=== PATIENT | male | born 1950 | race Caucasian/White ===

== ENCOUNTER 2018-04-30 09:57 | Inpatient (IN) | payer MEDICARE, SELFPAY ==
[2018-04-30] VITALS (10 sets, daily range): BP systolic 94–150; BP diastolic 54–105; PULSE 94–129; RESP 20–22; TEMP 37.3–39.6; O2SAT 90–95; BMI 35.9; BMI 37.0
--- NOTE | 2018-04-30 10:16 | XR_ITS ---
XR acute abdomen series HISTORY: ITS.REASON: SVETLANA , MARTIN ORDERING PHYSICIAN: Keturah Almonte MD PATIENT AGE: 68 years COMPARISON: None TECHNIQUE: Upright view of the chest is performed along with upright and supine views of the abdomen and pelvis. FINDINGS: Left hemidiaphragm is slightly elevated with patchy atelectasis or infiltrate in the left lung base. Normal heart size. Bone plate is present along the lower cervical spine. No evidence of intestinal obstruction or free air. Mild lumbar scoliosis convex right. Multiple pelvic phleboliths are present on the left. IMPRESSION: Left basilar atelectasis or infiltrate
--- NOTE | 2018-04-30 10:17 | HMH.EDFEV ---
ED Disposition Clinical Impression: Chronic inflammatory demyelinating neuropathy, Lingular pneumonia, Uncontrolled diabetes mellitus Disposition: Still a Patient Condition on Discharge: Fair Referrals: Crystal Cleaning [Primary Care Provider] - - Critical Care Critical Care Time: No Attestation: On , the high probability of a clinically significant, sudden or life threatening deterioration of the following system(s) required my full and direct attention, intervention and personal management. The time I documented below is in addition to time spent performing reported procedures but includes the following listed in this critical care notation. Medical Decision Making - Medical Records Medical records reviewed: Yes: I reviewed the patient's medical records. - Osman Inquiry Pt receiving controlled substance: No Osman was queried for this patient: No Vital Signs: 04/30/18 09:58 04/30/18 10:37 04/30/18 11:00 Temperature 103.2 F H 102.1 F H Temperature Source Oral Axillary Pulse Rate [Right Radial] 129 H 125 H 117 H Respiratory Rate 22 22 22 Blood Pressure [Right Arm] 133/90 150/89 H 150/105 H Blood Pressure Mean [Right Arm] 104 109 120 Blood Pressure Source [Right Arm] Automatic Cuff Automatic Cuff Blood Pressure Position [Right Arm] Sitting Sitting 02 Sat by Pulse Oximetry 94 L 92 L 90 L Oxygen Delivery Method Nasal Cannula Nasal Cannula Nasal Cannula Oxygen Flow Rate (LPM) 2 2 2 - Lab Data Lab Results 04/30/18 10:14: WBC 27.5 H*, RBC 4.72, Hgb 14.5, Hct 43.5, MCV 92.1, MCH 30.8, MCHC 33.4, RDW 13.8, Plt Count 223, MPV 7.9, Neut % (Auto) 93.4 H, Lymph % (Auto) 2.4 L, [place] % (Auto) 2.7, Eos % (Auto) 1.0, Baso % (Auto) 0.4, Neut # (Auto) 25.7 H, Lymph # (Auto) 0.7, [place] # (Auto) 0.7, Eos # (Auto) 0.3, Baso # (Auto) 0.1, Total Counted 100, Neutrophils % (Manual) 92 H, Band Neutrophils % 4.0, Lymphocytes % (Manual) 2 L, Atypical Lymphs % 1.0, Monocytes % (Manual) 1 L, Platelet Estimate Normal, Stomatocytes 3+ 04/30/18 10:14: Sodium 133 L, Potassium 3.5, Chloride 94 L, Carbon Dioxide 25, Anion Gap 17.5 H, BUN 15, Creatinine 1.63 H, Estimated Creat Clear 72, Estimated GFR 43 L, Est GFR ( Amer) 51 L, Glucose 206 H, Calcium 8.2 L, Total Bilirubin 0.8, AST 33, ALT 37, Alkaline Phosphatase 50, Total Protein 8.5 H, Albumin 3.5, Globulin 5.0 H, Albumin/Globulin Ratio 0.7 L 04/30/18 10:14: Magnesium 1.3 L, Total Creatine Kinase 565 H*, CK-MB (CK-2) 3.1, CK-MB (CK-2) Rel Index 0.5, Troponin I < 0.02, Lipase 104 04/30/18 10:14: Lactate 3.6 H 04/30/18 10:14: Influenza Type A Ag Negative, Influenza Type B Ag Negative 04/30/18 10:14: Group A Strep Rapid Negative 04/30/18 10:15: Specimen Source Right radial, O2 % 2l, ABG pH 7.47 H, ABG pCO2 33.4 L, ABG pO2 72.0 L, ABG HCO3 23.8, ABG Total CO2 24.8, ABG O2 Saturation 95, ABG Base Excess 0.2, Chucho Test Acceptable 04/30/18 11:20: Urine Color Dk yellow, Urine Appearance Sl cloudy, Urine pH 6.0, Ur Specific [place] >= 1.030, Urine Protein 2+, Urine Glucose (UA) Negative, Urine Ketones 1+, Urine Blood 2+, Urine Nitrate Negative, Urine Bilirubin Negative, Urine Urobilinogen 0.2, Ur Leukocyte Esterase Negative 04/30/18 11:20: Urine Opiates Screen Negative, Urine Methadone Screen Negative, Ur Barbituates Screen Negative, Ur Phencyclidine Scrn Negative, Ur Amphetamines Screen Negative, U Benzodiazepines Scrn Negative, Urine Cocaine Screen Negative, U Marijuana (THC) Screen Positive H Result diagrams: 04/30/18 10:14 04/30/18 10:14 Orders (Tests/Meds): ED MEDICATIONS Generic Name Dose Route Start Last Admin Trade Name Freq PRN Reason Stop Dose Admin Ceftriaxone Sodium 1 gm/ 50 mls @ 100 mls/hr 04/30/18 10:15 04/30/18 10:29 Sodium Chloride IV 05/14/18 10:14 100 mls/hr Q24H ANGELIKA Administration Protocol Levofloxacin/Dextrose 750 mg in 150 mls @ 100 mls/hr 04/30/18 11:45 04/30/18 11:35 Levofloxacin 750mg/150ml Premix IV 05/14/18 11:44 Not Gi
--- NOTE | 2018-04-30 10:21 | ED_ITS ---
ED Disposition Clinical Impression: Chronic inflammatory demyelinating neuropathy, Lingular pneumonia, Uncontrolled diabetes mellitus Disposition: Still a Patient Condition on Discharge: Fair Referrals: Crystal Cleaning [Primary Care Provider] - - Critical Care Critical Care Time: No Attestation: On , the high probability of a clinically significant, sudden or life threatening deterioration of the following system(s) required my full and direct attention, intervention and personal management. The time I documented below is in addition to time spent performing reported procedures but includes the fol lowing listed in this critical care notation. Medical Decision Making - Medical Records Medical records reviewed: Yes: I reviewed the patient's medical records. - Osman Inquiry Pt receiving controlled substance: No Osman was queried for this patient: No Vital Signs: 04/30/18 09:58 04/30/18 10:37 04/30/18 11:00 Temperature 103.2 F H 102.1 F H Temperature Source Oral Axillary Pulse Rate [Right Radial] 129 H 125 H 117 H Respiratory Rate 22 22 22 Blood Pressure [Right Arm] 133/90 150/89 H 150/105 H Blood Pressure Mean [Right Arm] 104 109 120 Blood Pressure Source [Right Arm] Automatic Cuff Automatic Cuff Blood Pressure Position [Right Arm] Sitting Sitting 02 Sat by Pulse Oximetry 94 L 92 L 90 L Oxygen Delivery Method Nasal Cannula Nasal Cannula Nasal Cannula Oxygen Flow Rate (LPM) 2 2 2 - Lab Data Lab Results 04/30/18 10:14: WBC 27.5 H*, RBC 4.72, Hgb 14.5, Hct 43.5, MCV 92.1, MCH 30.8, MCHC 33.4, RDW 13.8, Plt Count 223, MPV 7.9, Neut % (Auto) 93.4 H, Lymph % (Auto) 2.4 L, [place] % (Auto) 2.7, Eos % (Auto) 1.0, Baso % (Auto) 0.4, Neut # (Auto) 25.7 H, Lymph # (Auto) 0.7, [place] # (Auto) 0.7, Eos # (Auto) 0.3, Baso # (Auto) 0.1, Total Counted 100, Neutrophils % (Manual) 92 H, Band Neutrophils % 4.0, Lymphocytes % (Manual) 2 L, Atypical Lymphs % 1.0, Monocytes % (Manual) 1 L , Platelet Estimate Normal, Stomatocytes 3+ 04/30/18 10:14: Sodium 133 L, Potassium 3.5, Chloride 94 L, Carbon Dioxide 25, Anion Gap 17.5 H, BUN 15, Creatinine 1.63 H, Estimated Creat Clear 72, Estimated GFR 43 L, Est GFR ( Amer) 51 L, Glucose 206 H, Calcium 8.2 L, Total Bilirubin 0.8, AST 33, ALT 37, Alkaline Phosphatase 50, Total Protein 8.5 H, Albumin 3.5, Globulin 5.0 H, Albumin/Globulin Ratio 0.7 L 04/30/18 10:14: Magnesium 1.3 L, Total Creatine Kinase 565 H*, CK-MB (CK-2) 3.1, CK-MB (CK-2) Rel Index 0.5, Troponin I < 0.02, Lipase 104 04/30/18 10:14: Lactate 3.6 H 04/30/18 10:14: Influenza Type A Ag Negative, Influenza Type B Ag Negative 04/30/18 10:14: Group A Strep Rapid Negative 04/30/18 10:15: Specimen Source Right radial, O2 % 2l, ABG pH 7.47 H, ABG pCO2 33.4 L, ABG pO2 72.0 L, ABG HCO3 23.8, ABG Total CO2 24.8, ABG O2 Saturation 95, ABG Base Excess 0.2, Chucho Test Acceptable 04/30/18 11:20: Urine Color Dk yellow, Urine Appearance Sl cloudy, Urine pH 6.0, Ur Specific [place] >= 1.030, Urine Protein 2+, Urine Glucose (UA) Negative, Urine Ketones 1+, Urine Blood 2+, Urine Nitrate Negative, Urine Bilirubin Negative, Urine Urobilinogen 0.2, Ur Leukocyte Esterase Negative 04/30/18 11:20: Urine Opiates Screen Negative, Urine Methadone Screen Negative, Ur Barbituates Screen Negative, Ur Phencyclidine Scrn Negative, Ur Amphetamines Screen Negative, U Benzodiazepines Scrn Negative, Urine Cocaine Screen Negative, U Marijuana (THC) Screen Positive H Result diagrams:
[2018-04-30 10:40] LABS: Basophils # 0.1 K/mm3 (0-0.2); Basophils % 0.4 % (0.1-2.0); Eosinophils # 0.3 K/mm3 (0.0-0.4); Hematocrit 43.5 % (42.0-52.0); Hemoglobin 14.5 g/dL (14.1-18.0); Lymphocytes # 0.7 K/mm3 (0.7-4.5); Lymphocytes % 2.4 % (10-50); Mean Corpuscular HGB Conc 33.4 g/dL (31.8-35.4); Mean Corpuscular Hemoglobin 30.8 pg (27.0-31.2); Mean Corpuscular Volume 92.1 fl (80-94); Mean Platelet Volume 7.9 fl (7.4-10.4); Monocytes # 0.7 K/mm3 (0.1-1.0); Monocytes % 2.7 % (1.7-9.3); Neutrophils # 25.7 K/mm3 (1.8-7.8); Neutrophils % 93.4 % (37.0-80.0); Platelet Count 223 K/mm3 (142-424); Red Blood Count 4.72 M/mm3 (4.60-6.20); Red Cell Distribution Width 13.8 % (11.5-17.5); White Blood Count 27.5 K/mm3 (4.8-10.8)
[2018-04-30 10:41] LABS: Strep Scrn Group A (Rapid) Negative (Negative)
[2018-04-30 10:42] LABS: MANUAL DIFFERENTIAL MANUAL DIFFERENTIAL (MANUAL DIFF)
[2018-04-30 10:47] LABS: Lactic Acid 3.6 mmol/L (0.4-2.0)
[2018-04-30 10:51] LABS: Lipase 104 u/L (73-393); Magnesium 1.3 mg/dL (1.4-2.2); Sodium 133 mmol/L (136-145); Troponin I < 0.02 ng/ml (0.00-0.06)
[2018-04-30 10:52] LABS: Anion Gap 17.5 mEq/L (5-15); Bilirubin,Total 0.8 mg/dL (0.2-1.0); Blood Urea Nitrogen 15 mg/dL (7-18); Calcium 8.2 mg/dL (8.5-10.1); Carbon Dioxide 25 mmol/L (21.0-32.0); Chloride 94 mmol/L (98-107); Creatinine Clearance Estimated 72 mL/min (50-200); Creatinine,Serum 1.63 mg/dL (0.70-1.30); Estimated Glomerular Filt Rate 43 ml/min (>60); GFR (African American) 51 ML/MIN (>60); Glucose 206 mg/dL (74-106); Potassium 3.5 mmoL/L (3.5-5.1)
[2018-04-30 10:53] LABS: Alanine Aminotransferase 37 U/L (12-78); Albumin Level 3.5 gm/dL (3.4-5.0); Albumin/Globulin Ratio 0.7 (1.1-1.8); Alkaline Phosphatase 50 U/L (46-116); Aspartate Amino Transferase 33 U/L (15-37); Total Protein,Serum 8.5 gm/dL (6.4-8.2)
[2018-04-30 10:54] LABS: CKMB Relative Index 0.5 U/L (0-4.0); Creatine Kinase 565 U/L (39-308); Creatine Kinase MB 3.1 ng/ml (0.0-3.6)
[2018-04-30 10:59] LABS: Lymphocytes % 2 % (10-50); Monocytes % 1 % (2-9); Neutrophils % 92 % (42-76); Total Cells Counted 100
[2018-04-30 11:00] LABS: Platelet Estimate Normal; Stomatocytes 3+
[2018-04-30 11:01] LABS: ABG Base Excess 0.2 mmol/L (-2.4-2.3); ABG HCO3 23.8 mmhg (22.0-26.0); ABG Oxygen Saturation 95 % (90-100); ABG PCO2 33.4 mmhg (35.0-45.0); ABG PH 7.47 mmol/L (7.35-7.45); ABG TCO2 24.8 mmhg (23-27)
[2018-04-30 11:03] LABS: Allen's Test Acceptable; Oxygen 2L %; Source Right Radial
[2018-04-30 11:29] LABS: Microscopic, Urine URINE MICROSCOPIC (MICROSCOPIC)
[2018-04-30 11:32] LABS: Appearance,Urine SL CLOUDY (Clear); Blood, Urine 2+ (Negative); Color,Urine DK YELLOW (Yellow); Glucose,Urine (UA) Negative (Negative); Ketones,Urine 1+ (Negative); Leukocyte Esterase,Urine Negative (Negative); Nitrate,Urine Negative (Negative); Protein,Urine 2+ (Negative); Specific Gravity, Urine >= 1.030 (1.005-1.030); Urobilinogen,Urine 0.2 EU/dl (0.2)
[2018-04-30 11:36] LABS: Bilirubin,Urine Negative (Negative)
[2018-04-30 11:39] LABS: Amphetamine/Metha Screen,Urine Negative ng/mL (<1000); Barbiturates Screen,Urine Negative ng/mL (<200); Benzodiazepines Screen,Urine Negative ng/mL (<200); Cannabinoid Screen,Urine Positive ng/mL (<50); Cocaine Screen,Urine Negative ng/mL (<300); Methadone Screen,Urine Negative ng/mL (<300); Opiate Screen,Urine Negative ng/mL (<300); Phencyclidine Screen,Urine Negative ng/mL (<25)
--- NOTE | 2018-04-30 11:44 | PC.NURSE ---
Dr. Almonte speaking with Dr. Roy at this time.
[2018-04-30 11:47] LABS: Bacteria,Urine 1+ /lpf
--- NOTE | 2018-04-30 13:51 | HMH.HP ---
*Admission Date: 04/30/18 *Chief complaint: Fever/cough *History of present illness: 68-year-old white male with history of chronic autoimmune polyneuropathy, diagnosed about 3 years ago, who has been treated with Rituxan therapy by his neurologist, previously in [facility], after IVIG failed. He has recently moved to the [facility] to be closer to his daughter. He has been feeling fairly well except for chronic fatigue from his neuropathy issues until approximately a week ago when he began to have increasing cough and sputum production. 2 days ago he went to see a nurse practitioner in [place] who prescribed a Z-Max for bronchitis but he did not feel up to going to get the prescription and so yesterday began to feel worse and last night began to have high fevers. This morning he was confused, had a temperature elevation at home of 103 degrees, and then presented to the emergency department here. Found to have leukocytosis, tachycardia, fever and infiltrate on chest x-ray, admitted to hospital for treatment of pneumonia given his immunocompromise status and potential sepsis. [facility] History I have reviewed the patient's past medical history: Yes Medical History: Reports:: Diabetes Mellitus Type 2, Hypertension Denies:: Cancer, Diabetes Mellitus Type 1, MRSA *Have you ever received a pneumonia vaccine?: Yes *Have you received a flu vaccine this season?: No (Can't take it r/t auto-immune disorder) Comment:: Chronic autoimmune peripheral neuropathy-status post Rituxan therapy/IVIG therapy, follows with Dr. Machado, neurologist in [place]. Laterality Cases: Bilateral: Tonsillectomy Other Surgeries: Yes: Cardiac Catheterization Amputation: No Fractures: No - *Social History Smoking Status: Never smoker Alcohol Intake: former Alcohol Intake Frequency:: holidays/special occasions only Substance Use Type: denies use *Occupational Status:: retired Housing: house Household Members: spouse *Travel in the last 8 weeks: None - Psychiatric History Expresses thoughts of harming self/others: None Suicide Plan Description: No Plan Family Hx:: No significant family history, Non-contributory Review of Systems - Review of Systems Review of systems:: pertinent systems reviewed and negative unless documented below - Constitutional Reports anorexia, Reports body ache(s), Reports chills, Reports fatigue, Reports fever(s), Reports lack of energy - Eyes Denies blind spots, Denies blurry vision, Denies change in vision - ENT Denies abnormal hearing, Denies bleeding gums - *Cardiovascular Reports shortness of breath, Reports shortness of breath with activity, Denies chest pain, Denies chest pain at rest, Denies chest pain with activity, Denies leg pain with activity - *Respiratory Reports change in phlegm color, Reports chest congestion, Reports cough, Reports shortness of breath - *Gastrointestinal Denies abdominal pain, Denies belching, Denies bloating - *Genitourinary Denies difficulty urinating - *Musculoskeletal Reports muscle weakness, Reports numbness, Denies abnormal walking - Integumentary/Breasts Denies acne, Denies hair loss, Denies change in skin color - *Neurologic Reports abnormal walking, Reports burning sensations, Reports unsteadiness, Reports dizziness - Psychiatric Denies abnormal sleep pattern - Endocrine Denies cold intolerance, Denies excessive sweating - Hematologic/Lymphatic Denies easy bleeding, Denies easy bruising Meds Home Medications Medication Instructions Recorded Confirmed Type Aspirin 81 mg PO DAILY 04/30/18 04/30/18 History Butalb/Acetaminophen/Caffeine 1 tab PO DAILY PRN 04/30/18 04/30/18 History [Fiorcet Tablet] Cetirizine HCl [Zyrtec] 10 mg PO DAILY 04/30/18 04/30/18 History Cholecalciferol (Vitamin D3) 50,000 unit PO DAILY 04/30/18 04/30/18 History [Vitamin D3 50,000 unit Cap] Cholestyramine (with Sugar) 4 gm PO DAILY 04/30/18 04/30/18 History [Cholestyramine Pack
--- NOTE | 2018-04-30 13:56 | P.HP_ITS ---
*Admission Date: 04/30/18 *Chief complaint: Fever/cough *History of present illness: 68-year-old white male with history of chronic autoimmune polyneuropathy, diagnosed about 3 years ago, who has been treated with Rituxan therapy by his neurologist, previously in [facility], after IVIG failed. He has recently moved to the [facility] to be closer to his daughter. He has been feeling fairly well except for chronic fatigue from his neuropathy issues until approximately a week ago when he began to have increasing cough and sputum production. 2 days ago he went to see a nurse practitioner in [place] who prescribed a Z- Max for bronchitis but he did not feel up to going to get the prescription and so yesterday began to feel worse and last night began to have high fevers. This morning he was confused, had a temperature elevation at home of 103 degrees, and then presented to the emergency department here. Found to have leukocytosis, tachycardia, fever and infiltrate on chest x-ray, admitted to hospital for treatment of pneumonia given his immunocompromise status and potential sepsis. [facility] History I have reviewed the patient's past medical history: Yes Medical History: Reports:: Diabetes Mellitus Type 2, Hypertension Denies:: Cancer, Diabetes Mellitus Type 1, MRSA *Have you ever received a pneumonia vaccine?: Yes *Have you received a flu vaccine this season?: No (Can't take it r/t auto-immune disorder) Comment:: Chronic autoimmune peripheral neuropathy-status post Rituxan therapy/IVIG therapy, follows with Dr. Machado, neurologist in [place]. Laterality Cases: Bilateral: Tonsillectomy Other Surgeries: Yes: Cardiac Catheterization Amputation: No Fractures: No - *Social History Smoking Status: Never smoker Alcohol Intake: former Alcohol Intake Frequency:: holidays/special occasions only Substance Use Type: denies use *Occupational Status:: retired Housing: house Household Members: spouse *Travel in the last 8 weeks: None - Psychiatric History Expresses thoughts of harming self/others: None Suicide Plan Description: No Plan Family Hx:: No significant family history, Non-contributory Review of Systems - Review of Systems Review of systems:: pertinent systems reviewed and negative unless documented below - Constitutional Reports anorexia, Reports body ache(s), Reports chills, Reports fatigue, Reports fever(s), Reports lack of energy - Eyes Denies blind spots, Denies blurry vision, Denies change in vision - ENT Denies abnormal hearing, Denies bleeding gums - *Cardiovascular Reports shortness of breath, Reports shortness of breath with activity, Denies chest pain, Denies chest pain at rest, Denies chest pain with activity, Denies leg pain with activity - *Respiratory Reports change in phlegm color, Reports chest congestion, Reports cough, Reports shortness of breath - *Gastrointestinal Denies abdominal pain, Denies belching, Denies bloating - *Genitourinary Denies difficulty urinating - *Musculoskeletal Reports muscle weakness, Reports numbness, Denies abnormal walking - Integumentary/Breasts Denies acne, Denies hair loss, Denies change in skin color - *Neurologic Reports abnormal walking, Reports burning sensations, Reports unsteadiness, Reports dizziness - Psychiatric Denies abnormal sleep pattern - Endocrine Denies cold intolerance, Denies excessive sweating - Hematologic/Lymphatic Denies easy bleeding, Denies easy bruising Meds Home Medications
[2018-04-30 14:24] LABS: Reflex Lactic Add Lactic Reflex
[2018-04-30 14:59] LABS: Lactic Acid Follow Up (RFLX 1) 3.5 (0.4-2.0)
--- NOTE | 2018-04-30 15:12 | HMH.PHAVTE ---
[facility] Pharmacy VTE Monitoring - Patient Demographics Admission date: 04/30/18 Report Date: 04/30/18 Time: 15:12 Allergies/Adverse Reactions: Patient Allergies Iodinated Contrast Media - Oral and Adverse Reaction (Verified 04/30/18 10:09) Height: 1.78 m Weight: 117.084 kg Patient Problems: Current Active Problems Chronic inflammatory demyelinating neuropathy (Acute) Lingular pneumonia (Acute) Uncontrolled diabetes mellitus (Acute) Sepsis (Acute) Diabetes mellitus type 2 in obese (Acute) Obesity (BMI 35.0-39.9 without comorbidity) (Acute) Immunosuppressed status (Acute) - VTE Risk Labs: VTE Related Lab Results Hgb 14.5 g/dL (14.1-18.0) 04/30/18 10:14 Hct 43.5 % (42.0-52.0) 04/30/18 10:14 Plt Count 223 K/mm3 (142-424) 04/30/18 10:14 BUN 15 mg/dL (7-18) 04/30/18 10:14 Creatinine 1.63 mg/dL (0.70-1.30) H 04/30/18 10:14 Estimated Creat Clear 72 mL/min (50-200) 04/30/18 10:14 Was VTE Risk Assessment Performed: Yes VTE Score: 4 VTE Risk Level: Low Risk Clinical Trial Participant: No - Prophylaxis VTE Prophylaxis Ordered?: Yes Types of VTE Prophylaxis: TEDS Knee High
--- NOTE | 2018-04-30 15:13 | HMH.PHAINT ---
HOME MED REC: Called [facility] pharmacy and spent time with patient and family reconciling home medication list in [facility]. Zanaflex, Tramadol, Cholecalciferol, Metformin, Glimepiride were all edited. List is correct as of 1515 on 04/30/18.
[2018-04-30 16:40] LABS: Reflex Lactic (2 hrs) Add Lactic Reflex
[2018-04-30 17:00] LABS: POC Glucose,Bedside 159 (70-110)
[2018-04-30 17:21] LABS: Lactic Acid Follow up (RFLX 2) 2.2 (0.4-2.0)
--- NOTE | 2018-04-30 17:36 | HMH.SEPSISRE ---
Tissue Perfusion Evaluation Sepsis Re-Evaluation Performed: Yes Date Performed: 04/30/18 Time Performed: 17:37 Sepsis Follow-Up: Yes: Respiratory exam, Cardiovascular exam, Capillary refill, Peripheral pulse strength, Peripheral pulse location, Skin exam, Vital Signs Most Recent Vital Signs: Temperature 99.3 F 04/30/18 16:00 Temperature Source Oral 04/30/18 16:00 Pulse Rate 105 H 04/30/18 16:14 Respiratory Rate 22 04/30/18 16:00 Blood Pressure 131/70 04/30/18 16:00 Blood Pressure Mean 90 04/30/18 16:00 Blood Pressure Source Automatic Cuff 04/30/18 16:00 Blood Pressure Position Supine 04/30/18 16:00 02 Sat by Pulse Oximetry 90 L 04/30/18 16:00 Oxygen Delivery Method 04/30/18 16:14 Oxygen Flow Rate (LPM) 2 04/30/18 12:28
[2018-04-30 17:45] LABS: Adenovirus,PCR Not Detected (NotDetected); Bordetella Pertussis Not Detected (NotDetected); Chlamydophila Pneumoniae, PCR Not Detected (NotDetected); Coronavirus 229E Not Detected (NotDetected); Coronavirus NL63 Not Detected (NotDetected); Coronavirus OC43 Not Detected (NotDetected); Coronovirus HKU1,PCR Not Detected (NotDetected); Human Metapneumovirus Not Detected (NotDetected); Influenza A, PCR Not Detected (NotDetected); Influenza AH1, 2009 Not Detected (NotDetected); Influenza AH1, PCR Not Detected (NotDetected); Influenza AH3,PCR Not Detected (NotDetected); Influenza B, PCR Not Detected (NotDetected); Mycoplasma Pneumoniae, PCR Not Detected (NotDetected); Parainfluenza 1, PCR Not Detected (NotDetected); Parainfluenza 2, PCR Not Detected (NotDetected); Parainfluenza 3, PCR Not Detected (NotDetected); Parainfluenza 4, PCR Not Detected (NotDetected); Respiratory Syncytial Virus Not Detected (NotDetected); Rhinovirus/Enterovirus Not Detected (NotDetected)
--- NOTE | 2018-04-30 18:23 | PC.NURSE ---
Patient arrived to floor, oriented to room at 1245 this afternoon. NS bolus was started at 1405 for sepsis protocol, per Dr. Roy. Infusion of 3510ml of NS was completed at 1752 this afternoon, patient tolerated well, BP within normal limits. Dr. Roy at bedside at 1815 this afternoon and stated that he would chart sepsis assessment. Patient is sitting up on side of bed at this time, call light within reach, family at bedside, will continue to monitor.
[2018-04-30 20:50] LABS: POC Glucose,Bedside 154 (70-110)
--- NOTE | 2018-04-30 22:09 | PC.NURSE ---
2100 courtesy check; pt sleeping
[2018-05-01] VITALS (10 sets, daily range): BP systolic 87–138; BP diastolic 44–72; PULSE 56–94; RESP 18–22; TEMP 36.4–37.6; O2SAT 93–97
--- NOTE | 2018-05-01 05:13 | PC.NURSE ---
PATIENT SEEMS TO HAVE SLEPT WELL THIS SHIFT. HE AMBULATES TO BATHROOM WITH CANE AND STAFF ASSIST X1. HE HAS HAD A COUPLE OF LOWER BLOOD PRESSURES DURING THE NIGHT, BUT DENIES ANY DIZZINESS AND HAS BEEN ASYMPTOMATIC. HE DOES STATE THAT HE FEELS WEAK WHEN AMBULATING. NO OTHER ACUTE CHANGES HAVE BEEN NOTED SINCE PREVIOUS ASSESSMENT. PATIENT IS CURRENTLY IN BED SLEEPING. NO OTHER PROBLEMS NOTED AT THIS TIME. VSS. WILL CONTINUE TO MONITOR.
[2018-05-01 05:31] LABS: POC Glucose,Bedside 119 (70-110)
--- NOTE | 2018-05-01 06:35 | PC.NURSE ---
0600 courtesy check; no needs voiced
[2018-05-01 06:57] LABS: Basophils % 0.2 % (0.1-2.0); Eosinophils # 0.4 K/mm3 (0.0-0.4); Eosinophils % 2.3 % (0.1-12.0); Hematocrit 35.9 % (42.0-52.0); Lymphocytes # 1.1 K/mm3 (0.7-4.5); Lymphocytes % 6.8 % (10-50); Mean Corpuscular HGB Conc 32.4 g/dL (31.8-35.4); Mean Corpuscular Volume 92.8 fl (80-94); Mean Platelet Volume 7.3 fl (7.4-10.4); Monocytes # 0.6 K/mm3 (0.1-1.0); Monocytes % 3.7 % (1.7-9.3); Neutrophils # 14.3 K/mm3 (1.8-7.8); Platelet Count 168 K/mm3 (142-424); Red Blood Count 3.87 M/mm3 (4.60-6.20); White Blood Count 16.5 K/mm3 (4.8-10.8)
[2018-05-01 07:08] LABS: Blood Urea Nitrogen 17 mg/dL (7-18); Carbon Dioxide 25 mmol/L (21.0-32.0); Chloride 100 mmol/L (98-107); Creatinine Clearance Estimated 83 mL/min (50-200); Creatinine,Serum 1.45 mg/dL (0.70-1.30); Estimated Glomerular Filt Rate 49 ml/min (>60); GFR (African American) 59 ML/MIN (>60); Glucose 113 mg/dL (74-106); Magnesium 1.5 mg/dL (1.4-2.2); Sodium 135 mmol/L (136-145)
[2018-05-01 07:12] LABS: MANUAL DIFFERENTIAL MANUAL DIFFERENTIAL (MANUAL DIFF)
--- NOTE | 2018-05-01 07:27 | PC.NURSE ---
REPORT GIVEN TO Evan MEYERS RN
[2018-05-01 07:32] LABS: Hemoglobin 11.7 g/dL (14.1-18.0)
--- NOTE | 2018-05-01 08:42 | HMH.ACPN2 ---
Internal Medicine - PN: Subj *Date: 05/01/18 *Time: 07:30 Interval history: Patient sitting on side of the bed, states I still don't feel good. Was able to produce a sputum culture which shows growth, final report and sensitivities pending. Reports neuropathic pain has worsened without gabapentin. Alert and oriented x3. Rate and rhythm regular. Lung sounds with coarse crackles bilateral bases. Abdomen soft but protuberant. No LE edema Exam Vital signs and Labs for Last 24 Hours: Temp Pulse Resp BP Pulse Ox 98.6 F 86 18 116/62 95 05/01/18 07:19 05/01/18 07:19 05/01/18 07:19 05/01/18 07:19 05/01/18 07:19 Laboratory Results - last 24 hr 04/30/18 10:14: WBC 27.5 H*, RBC 4.72, Hgb 14.5, Hct 43.5, MCV 92.1, MCH 30.8, MCHC 33.4, RDW 13.8, Plt Count 223, MPV 7.9, Neut % (Auto) 93.4 H, Lymph % (Auto) 2.4 L, [place] % (Auto) 2.7, Eos % (Auto) 1.0, Baso % (Auto) 0.4, Neut # (Auto) 25.7 H, Lymph # (Auto) 0.7, [place] # (Auto) 0.7, Eos # (Auto) 0.3, Baso # (Auto) 0.1, Total Counted 100, Neutrophils % (Manual) 92 H, Band Neutrophils % 4.0, Lymphocytes % (Manual) 2 L, Atypical Lymphs % 1.0, Monocytes % (Manual) 1 L, Platelet Estimate Normal, Stomatocytes 3+ 04/30/18 10:14: Sodium 133 L, Potassium 3.5, Chloride 94 L, Carbon Dioxide 25, Anion Gap 17.5 H, BUN 15, Creatinine 1.63 H, Estimated Creat Clear 72, Estimated GFR 43 L, Est GFR ( Amer) 51 L, Glucose 206 H, Calcium 8.2 L, Total Bilirubin 0.8, AST 33, ALT 37, Alkaline Phosphatase 50, Total Protein 8.5 H, Albumin 3.5, Globulin 5.0 H, Albumin/Globulin Ratio 0.7 L 04/30/18 10:14: Magnesium 1.3 L, Total Creatine Kinase 565 H*, CK-MB (CK-2) 3.1, CK-MB (CK-2) Rel Index 0.5, Troponin I < 0.02, Lipase 104 04/30/18 10:14: Lactate 3.6 H 04/30/18 10:14: Influenza Type A Ag Negative, Influenza Type B Ag Negative 04/30/18 10:14: Group A Strep Rapid Negative 04/30/18 10:15: Specimen Source Right radial, O2 % 2l, ABG pH 7.47 H, ABG pCO2 33.4 L, ABG pO2 72.0 L, ABG HCO3 23.8, ABG Total CO2 24.8, ABG O2 Saturation 95, ABG Base Excess 0.2, Chucho Test Acceptable 04/30/18 11:20: Urine Color Dk yellow, Urine Appearance Sl cloudy, Urine pH 6.0, Ur Specific [place] >= 1.030, Urine Protein 2+, Urine Glucose (UA) Negative, Urine Ketones 1+, Urine Blood 2+, Urine Nitrate Negative, Urine Bilirubin Negative, Urine Urobilinogen 0.2, Ur Leukocyte Esterase Negative, Urine RBC None, Urine WBC 3-5, Ur Squamous Epith Cells 5-10, Urine Bacteria 1+ 04/30/18 11:20: Urine Opiates Screen Negative, Urine Methadone Screen Negative, Ur Barbituates Screen Negative, Ur Phencyclidine Scrn Negative, Ur Amphetamines Screen Negative, U Benzodiazepines Scrn Negative, Urine Cocaine Screen Negative, U Marijuana (THC) Screen Positive H 04/30/18 14:33: Lactate 3.5 H 04/30/18 16:52: POC Glucose 159 H 04/30/18 16:53: Lactate 2.2 H 04/30/18 17:26: Chlamy pneumoniae PCR Not detected, Adenovirus (PCR) Not detected, B. pertussis DNA (PCR) Not detected, Coronavirus OC43 (PCR) Not detected, Coronavirus HKU1 (PCR) Not detected, Coronavirus 229E (PCR) Not detected, Coronavirus NL63 (PCR) Not detected, Human Metapneumovir PCR Not detected, Influenza A (H1) PCR Not detected, Influ A (H1N1/09) PCR Not detected, Influenza A (H3) PCR Not detected, Influenza Type A (PCR) Not detected, Influenza Type B (PCR) Not detected, M. pneumoniae (PCR) Not detected, Parainfluenza 1 (PCR) Not detected, Parainfluenza 2 (PCR) Not detected, Parainfluenza 3 (PCR) Not detected, Parainfluenza 4 (PCR) Not detected, RSV (PCR) Not detected, Entero/Rhino (PCR) Not detected 04/30/18 20:32: POC Glucose 154 H 05/01/18 05:21: POC Glucose 119 H 05/01/18 06:08: WBC 16.5 H D, RBC 3.87 L, Hgb 11.7 L D, Hct 35.9 L, MCV 92.8, MCH 30.0, MCHC 32.4, RDW 14.0, Plt Count 168, MPV 7.3 L, Neut % (Auto) 87.0 H, Lymph % (Auto) 6.8 L, [place] % (Auto) 3.7, Eos % (Auto) 2.3, Baso % (Auto) 0.2, Neut # (Auto) 14.3 H, Lymph # (Auto) 1.1, [place] # (Auto) 0.6, Eos # (Auto) 0.4, Baso # (Auto) 0.0 05/01/18 06:08: Sodium 135 L
--- NOTE | 2018-05-01 08:47 | P.PN_ITS ---
Internal Medicine - PN: Subj *Date: 05/01/18 *Time: 07:30 Interval history: Patient sitting on side of the bed, states I still don't feel good. Was able to produce a sputum culture which shows growth, final report and sensitivities pending. Reports neuropathic pain has worsened without gabapentin. Alert and oriented x3. Rate and rhythm regular. Lung sounds with coarse crackles bilateral bases. Abdomen soft but protuberant. No LE edema Exam Vital signs and Labs for Last 24 Hours: Temp Pulse Resp BP Pulse Ox 98.6 F 86 18 116/62 95 05/01/18 07:19 05/01/18 07:19 05/01/18 07:19 05/01/18 07:19 05/01/18 07:19 Laboratory Results - last 24 hr 04/30/18 10:14: WBC 27.5 H*, RBC 4.72, Hgb 14.5, Hct 43.5, MCV 92.1, MCH 30.8, MCHC 33.4, RDW 13.8, Plt Count 223, MPV 7.9, Neut % (Auto) 93.4 H, Lymph % (Auto) 2.4 L, [place] % (Auto) 2.7, Eos % (Auto) 1.0, Baso % (Auto) 0.4, Neut # (Auto) 25.7 H, Lymph # (Auto) 0.7, [place] # (Auto) 0.7, Eos # (Auto) 0.3, Baso # (Auto) 0.1, Total Counted 100, Neutrophils % (Manual) 92 H, Band Neutrophils % 4.0, Lymphocytes % (Manual) 2 L, Atypical Lymphs % 1.0, Monocytes % (Manual) 1 L , Platelet Estimate Normal, Stomatocytes 3+ 04/30/18 10:14: Sodium 133 L, Potassium 3.5, Chloride 94 L, Carbon Dioxide 25, Anion Gap 17.5 H, BUN 15, Creatinine 1.63 H, Estimated Creat Clear 72, Estimated GFR 43 L, Est GFR ( Amer) 51 L, Glucose 206 H, Calcium 8.2 L, Total Bilirubin 0.8, AST 33, ALT 37, Alkaline Phosphatase 50, Total Protein 8.5 H, Albumin 3.5, Globulin 5.0 H, Albumin/Globulin Ratio 0.7 L 04/30/18 10:14: Magnesium 1.3 L, Total Creatine Kinase 565 H*, CK-MB (CK-2) 3.1, CK-MB (CK-2) Rel Index 0.5, Troponin I < 0.02, Lipase 104 04/30/18 10:14: Lactate 3.6 H 04/30/18 10:14: Influenza Type A Ag Negative, Influenza Type B Ag Negative 04/30/18 10:14: Group A Strep Rapid Negative 04/30/18 10:15: Specimen Source Right radial, O2 % 2l, ABG pH 7.47 H, ABG pCO2 33.4 L, ABG pO2 72.0 L, ABG HCO3 23.8, ABG Total CO2 24.8, ABG O2 Saturation 95, ABG Base Excess 0.2, Chucho Test Acceptable 04/30/18 11:20: Urine Color Dk yellow, Urine Appearance Sl cloudy, Urine pH 6.0, Ur Specific Alex >= 1.030, Urine Protein 2+, Urine Glucose (UA) Negative, Urine Ketones 1+, Urine Blood 2+, Urine Nitrate Negative, Urine Bilirubin Negative, Urine Urobilinogen 0.2, Ur Leukocyte Esterase Negative, Urine RBC None, Urine WBC 3-5, Ur Squamous Epith Cells 5-10, Urine Bacteria 1+ 04/30/18 11:20: Urine Opiates Screen Negative, Urine Methadone Screen Negative, Ur Barbituates Screen Negative, Ur Phencyclidine Scrn Negative, Ur Amphetamines Screen Negative, U Benzodiazepines Scrn Negative, Urine Cocaine Screen Negative, U Marijuana (THC) Screen Positive H 04/30/18 14:33: Lactate 3.5 H 04/30/18 16:52: POC Glucose 159 H 04/30/18 16:53: Lactate 2.2 H 04/30/18 17:26: Chlamy pneumoniae PCR Not detected, Adenovirus (PCR) Not detected, B. pertussis DNA (PCR) Not detected, Coronavirus OC43 (PCR) Not detect ed, Coronavirus HKU1 (PCR) Not detected, Coronavirus 229E (PCR) Not detected, Coronavirus NL63 (PCR) Not detected, Human Metapneumovir PCR Not detected, Influenza A (H1) PCR Not detected, Influ A (H1N1/09) PCR Not detected, Influenza A (H3) PCR Not detected, Influenza Type A (PCR) Not detected, Influenza Type B (PCR) Not detected, M. pneumoniae (PCR) Not detected, Parainfluenza 1 (PCR) Not detected, Parainfluenza 2 (PCR) Not detected, Parainfluenza 3 (PCR) Not detected, Parainfluenza 4 (PCR) Not detected, RSV (PCR) Not detected, Entero/Rhino (PCR) Not detected 04/30/18 20:32: POC Glucose 154 H 05/01/18 05:21: POC Glucose 119 H 05/01/18 06:08
[2018-05-01 09:03] LABS: Eosinophils % 2 % (0-3); Lymphocytes % 9 % (10-50); Monocytes % 3 % (2-9); Neutrophils % 86 % (42-76); Platelet Estimate Normal; RBC Morphology Normal; Total Cells Counted 100
[2018-05-01 12:24] LABS: POC Glucose,Bedside 173 (70-110)
[2018-05-01 17:16] LABS: POC Glucose,Bedside 150 (70-110)
--- NOTE | 2018-05-01 20:08 | PC.NURSE ---
PATIENT BP LOW THRU THE DAY, RN PHONED DR. EDDY OFFICE, LEFT A MESSAGE, NO RETURN. THANG ON FLOOR AND RN GAVE REPORT ABOUT PATIENTS CONDITION, THANG ORDERED A 500 BOLUS OF LR. RN GAVE BOLUS, PATIENT STATED HE FELT BETTER NO MORE LIGHTHEADNESS BUT WAS STILL TIRED. RN EDUCATED PATIENT THAT HE HAS BEEN EXTREMELY ILL AND HIS BODY IS TIRED. RN ENCOURAGED PATIENT TO REST. PATIENT STATED HE RESTED A COUPLE OF TIMES IN THE CHAIR. PATIENT STATED THAT DAUGHTER BROUGHT IN HIS THC OIL, THE DR. ARIAS TALKED TO HIM ABOUT BEING POSITIVE FOR MARIJUANA. NIGHT RN IN ROOM AND AWARE OF OIL. NO OTHER CONCERNS OR NEEDS AT THIS TIME.
[2018-05-02] VITALS (8 sets, daily range): BP systolic 108–142; BP diastolic 64–89; PULSE 67–90; RESP 20–24; TEMP 36.6–37.2; O2SAT 94–97; BMI 36.9
[2018-05-02 00:50] LABS: POC Glucose,Bedside 215 (70-110)
--- NOTE | 2018-05-02 03:21 | PC.NURSE ---
Pt. rested well this shift. Is alert and oriented X3. VS have remained stable. Lung sounds were diminished and bowel sounds are active. Pt. has complained of a headache that was treated by medication given from [facility]. Will continue to monitor.
[2018-05-02 07:14] LABS: POC Glucose,Bedside 192 (70-110)
--- NOTE | 2018-05-02 08:00 | XR_ITS ---
XR chest 2V HISTORY: ITS.REASON: pneumonia ORDERING PHYSICIAN: Dimas Roy MD PATIENT AGE: 68 years COMPARISON: 04/30/2018 FINDINGS: Unremarkable cardiovascular structures. There are low lung volumes. Patchy density reversely noted in the left lower lobe has shown improvement consistent with improvement in atelectasis or infiltrate. Bone plate is once again noted over the lower cervical spine. No acute bony anomalies. IMPRESSION: Improvement in left basilar airspace disease
--- NOTE | 2018-05-02 08:03 | HMH.ACPN2 ---
Internal Medicine - PN: Subj *Date: 05/02/18 *Time: 08:03 Interval history: Patient has done well overnight. Not requiring any supplemental oxygen. Cough is become more productive though he is feeling better. Remaining hemodynamically stable, no chest pain, shortness of breath, nausea or vomiting. Fever has defervesced and has been afebrile for more than 24 hours. Tolerating regular diet. Exam Vital signs and Labs for Last 24 Hours: Temp Pulse Resp BP Pulse Ox 99.0 F 90 23 132/87 95 05/02/18 07:52 05/02/18 07:52 05/02/18 07:52 05/02/18 07:52 05/02/18 07:52 Laboratory Results - last 24 hr 05/01/18 06:08: Total Counted 100, Neutrophils % (Manual) 86 H, Lymphocytes % (Manual) 9 L, Monocytes % (Manual) 3, Eosinophils % (Manual) 2, Platelet Estimate Normal, RBC Morphology Normal 05/01/18 12:14: POC Glucose 173 H 05/01/18 16:48: POC Glucose 150 H 05/01/18 20:46: POC Glucose 215 H 05/02/18 06:44: POC Glucose 192 H I & O for Last 24 hours: Intake & Output 04/29/18 04/30/18 05/01/18 05/02/18 23:59 23:59 23:59 23:59 Intake Total 4477 / 4477 1870 / 1870 480 / 480 Output Total 1999 Balance 4477 / 4477 1870 / 1870 -1520 / -1520 Weight 117.084 kg Microbiology Reports for the Last 24 Hours: Microbiology 04/30/18 10:14 Throat Group A Streptococcus Screen (ELIZABETH) - Final Negative for Group A Streptococcus. 04/30/18 20:25 Sputum - Expectorated Sputum Gram Stain - Final 04/30/18 20:25 Sputum - Expectorated Sputum Sputum Culture - Preliminary Narrative: Alert and oriented x3 Rate and rhythm regular Lung sounds with coarse crackles left base Abdomen soft but protuberant. No LE edema Assessment and Plan (1) Sepsis Current visit: Yes Status: Acute Category: Medical Code(s): A41.9 - Sepsis, unspecified organism (2) Diabetes mellitus type 2 in obese Current visit: Yes Status: Acute Category: Medical Code(s): E11.69 - Type 2 diabetes mellitus with other specified complication; E66.9 - Obesity, unspecified (3) Obesity (BMI 35.0-39.9 without comorbidity) Current visit: Yes Status: Acute Category: Medical Code(s): E66.9 - Obesity, unspecified (4) Lingular pneumonia Current visit: Yes Status: Acute Category: Medical Code(s): J18.9 - Pneumonia, unspecified organism (5) Immunosuppressed status Current visit: Yes Status: Acute Category: Medical Code(s): D89.9 - Disorder involving the immune mechanism, unspecified (6) Chronic inflammatory demyelinating neuropathy Current visit: Yes Status: Acute Category: Medical Code(s): G61.81 - Chronic inflammatory demyelinating polyneuritis - Assessment and plan all Dx Assessment and Plan for all problems:: Patient improving. No longer requiring supplemental oxygen. Fever has defervesced. Continue current antibiotics as we are still awaiting culture and sensitivities. Will complete azithromycin with today's dose. Likely transition to Omnicef for remainder of oral antibiotics pending sensitivities. Otherwise continuing patient's prednisone, holding azathioprine. Remains hemodynamically stable. Continues to require inpatient management.
--- NOTE | 2018-05-02 10:11 | PC.NURSE ---
sitting up in bed awake. no needs at this time.
[2018-05-02 12:39] LABS: POC Glucose,Bedside 204 (70-110)
[2018-05-02 20:22] LABS: POC Glucose,Bedside 219 (70-110)
[2018-05-02 20:22] LABS: POC Glucose,Bedside 303 (70-110)
[2018-05-03] VITALS: BP 140/95; PULSE 70; RESP 20; TEMP 36.4; O2SAT 95
[2018-05-03 04:00] VITALS: BP 139/80; PULSE 76; RESP 20; TEMP 36.6; O2SAT 94
--- NOTE | 2018-05-03 04:37 | PC.NURSE ---
PATIENT HAS SLEPT ON AND OFF THIS SHIFT. HE SLEPT UNTIL MIDNIGHT VITALS WERE TAKEN, BUT HAS HAD A DIFFICULT TIME GOING BACK TO SLEEP. HE REMAINS ON ROOM AIR WITH OXYGEN SAT WNL AND NO C/O SOA. HE DOES STATE THAT HE HAS CHRONIC LOW BACK PAIN AND REQUIRED PRN TRAMADOL AT BEDTIME. HE DOES HAVE SCATTERED SMALL, RED BUMPS ON ABD WHICH PATIENT STATED APPEARED YESTERDAY, WELL A GROUP OF SMALL BLISTERS TO RIGHT KNEE. NO ACUTE CHANGES HAVE BEEN NOTED SINCE PREVIOUS ASSESSMENT. PATIENT IS CURRENTLY IN BED WATCHING TV. NO OTHER PROBLEMS NOTED AT THIS TIME. VSS. WILL CONTINUE TO MONITOR.
[2018-05-03 06:14] LABS: POC Glucose,Bedside 165 (70-110)
--- NOTE | 2018-05-03 07:15 | PC.NURSE ---
REPORT GIVEN TO Meredith HAND W/C
--- NOTE | 2018-05-03 07:26 | PC.NURSE ---
REPORT GIVEN TO Melquiades THOMPSON RN
[2018-05-03 07:51] VITALS: BP 149/86; PULSE 81; RESP 22; TEMP 36.9; O2SAT 97
[2018-05-03 08:00] VITALS: O2SAT 97
--- NOTE | 2018-05-03 08:54 | HMH.DCSUM ---
General - General Admission date:: 04/30/18 Discharge date: 05/03/18 HPI HPI: 68-year-old white male with history of chronic autoimmune polyneuropathy, diagnosed about 3 years ago, who has been treated with Rituxan therapy by his neurologist, previously in [facility], after IVIG failed. He has recently moved to the [facility] to be closer to his daughter. He has been feeling fairly well except for chronic fatigue from his neuropathy issues until approximately a week ago when he began to have increasing cough and sputum production. 2 days ago he went to see a nurse practitioner in [place] who prescribed a Z-Max for bronchitis but he did not feel up to going to get the prescription and so yesterday began to feel worse and last night began to have high fevers. This morning he was confused, had a temperature elevation at home of 103 degrees, and then presented to the emergency department here. Found to have leukocytosis, tachycardia, fever and infiltrate on chest x-ray, admitted to hospital for treatment of pneumonia given his immunocompromise status and potential sepsis. Hospital Course Hospital Course: Admitted for sepsis due to pneumonia. Brisk response to IV Ceftriaxone and Azith. Sputum culture obtained. Weaned off O2 during admission. Remained hemodynamically stable with no further respiratory distress. Tolerated Regular diet. Fever defervesced. Monitored sputum culture, though no result prior to DC> Due to clinical improvement, met criteria to be discharged home. Finished Azithromycin course during admission. Transitioned to PO Cefdinir for completion of 14d course of therapy. Will follow Sputum Culture, if sensitivities differ form DC Abx, will change treatment in outpatient setting. plan for follow-up in the next week with PCP. no fevers, SOA, CP, LACEY, N/V/D. Objective Vital signs: Temp Pulse Resp BP Pulse Ox 98.5 F 81 22 149/86 H 97 05/03/18 07:51 05/03/18 07:51 05/03/18 07:51 05/03/18 07:51 05/03/18 07:51 Narrative: Alert and oriented x3 Rate and rhythm regular Lung sounds with intervally improved crackles left base Abdomen soft but protuberant. No LE edema. Results Labs on day of discharge: Labs from last 24 hours 05/03/18 05/02/18 05/02/18 05:53 20:08 17:15 POC Glucose 165 H 219 H 303 H* 05/02/18 11:42 POC Glucose 204 H Preliminary micro results at discharge 04/30/18 20:25 Sputum Culture - Preliminary Sputum - Expectorated Sputum 04/30/18 10:14 Blood Culture - Preliminary Blood NO GROWTH AFTER 48 HOURS 04/30/18 10:14 Blood Culture - Preliminary Blood NO GROWTH AFTER 48 HOURS DS: Diagnosis - Discharge Diagnosis (1) Sepsis Status: Resolved (2) Diabetes mellitus type 2 in obese Status: Chronic (3) Obesity (BMI 35.0-39.9 without comorbidity) Status: Chronic (4) Lingular pneumonia Status: Acute (5) Immunosuppressed status Status: Chronic (6) Chronic inflammatory demyelinating neuropathy Status: Chronic Discharge Plan - Patient Discharge Instructions ACTIVITY: Continue current activity Additional Instructions: FOLLOW UP WITH MD. MONITOR FOR WORSENING OF SYMPTOMS. Patient Instructions: Pneumonia-Adult - Follow up Plan Follow up with: Bishnu Colbert MD [Staff Physician] - Disposition: Home, Self-Usp Medications: Home Medications Medication Instructions Recorded Confirmed Type Aspirin 81 mg PO DAILY 04/30/18 04/30/18 History Butalb/Acetaminophen/Caffeine 1 tab PO DAILYP PRN 04/30/18 04/30/18 History [Fiorcet Tablet] Cetirizine HCl [Zyrtec] 10 mg PO DAILY 04/30/18 04/30/18 History Cholecalciferol (Vitamin D3) 50,000 unit PO WEEKLY 04/30/18 04/30/18 History [Vitamin D3 50,000 unit Cap] Cholestyramine (with Sugar) 4 gm PO DAILY 04/30/18 04/30/18 History [Cholestyramine Packet] Dicyclomine HCl 20 mg PO TID 04/30/18 04/30/18 History Gabapentin [Gabap
--- NOTE | 2018-05-03 09:39 | PC.NURSE ---
PT REQUESTED TO FILL PRESCRIPTION AT CLINIC PHARMACY INSTEAD OF [facility]. [facility] CONTACTED TO CANCEL OMNICEF AND SENT IT TO CLINIC.
--- NOTE | 2018-05-03 09:42 | HMH.PHAINT ---
DISCHARGE COUNSELING PROVIDED FOR ALL MEDICATIONS. NEW PRESCRIPTION FOR OMNICEF WAS SENT TO [facility], ALTHOUGH PATIENT STATES HE SIGNED UP FOR MEDS TO BEDS. TIERA MCGHEE WILL CALL [facility] AND CANCEL THAT PRESCRIPTION. I CALLED IN THE PRESCRIPTION TO [facility] AT [facility]IC PHARM[facility]Y. DISCUSSED HOW TO TAKE OMNICEF AND SIDE EFFECTS. PATIENT VERBALIZED UNDERSTANDING AND DID NOT HAVE ANY QUESTIONS.
--- NOTE | 2018-05-03 13:09 | PC.NURSE ---
PT REFUSED 1100 FSBS. PT WILL CHECK HIS BLOOD SUGAR WHEN HE GETS HOME BEFORE HE EATS LUNCH
== END 2018-05-03 12:50 | disposition home or self-care (01) | DRG 871 ==
LOC: ER 10:50 → 2ND 12:10
PROVIDERS: Admitting Provider Internal Medicine Adolescent Medicine; Emergency Provider Emergency Medicine; PCP Nurse Practitioner Family; Visit Provider Internal Medicine Adolescent Medicine
DX: J18.9 Pneumonia, unspecified organism (principal); A41.9 Sepsis, unspecified organism; G61.81 Chronic inflammatory demyelinating polyneuritis; E11.9 Type 2 diabetes mellitus without complications; I10 Essential (primary) hypertension; Z79.899 Other long term (current) drug therapy; Z79.84 Long term (current) use of oral hypoglycemic drugs; Z91.041 Radiographic dye allergy status
CPT/HCPCS: 36415; 71046; 74021; 80048; 80053; 80305; 81001; 82550; 82553; 82803; 82962; 83605; 83690; 83735; 84484; 85007; 85025; 87040; 87070; 87205; 87275; 87276; 87430; 87486; 87581; 87633; 87798; 94761; 96365; 96367; 96375; 99285; J0456; J1956; J2405

== ENCOUNTER 2018-05-04 05:51 | Inpatient (IN) ==
--- NOTE | 2018-05-04 06:30 | Emergency Department Note ---
ED Disposition Clinical Impression: Sepsis, Immunosuppression due to drug therapy Disposition: Admitted As Inpatient Condition on Discharge: Fair Referrals: Provider,Referral, [Primary Care Provider] - Time of Disposition: 08:30 - Critical Care Critical Care Time: No Attestation: On 05/04/18, the high probability of a clinically significant, sudden or life threatening deterioration of the following system(s) required my full and direct attention, intervention and personal management. The time I documented below is in addition to time spent performing reported procedures but includes the following listed in this critical care notation. Medical Decision Making - Medical Records Medical records reviewed: Yes: I reviewed the patient's medical records. - Osman Inquiry Pt receiving controlled substance: No Osman was queried for this patient: No Vital Signs: 05/04/18 05:52 05/04/18 07:17 05/04/18 07:35 Temperature 102.1 F H 98.0 F Temperature Source Oral Oral Pulse Rate Pulse Rate [Right Radial] 117 H 107 H 116 H Respiratory Rate 22 28 H Blood Pressure [Right Arm] 138/71 117/60 145/71 H Blood Pressure Mean [Right Arm] 93 79 95 Blood Pressure Source [Right Arm] Automatic Cuff Automatic Cuff Blood Pressure Position [Right Arm] Sitting Sitting 02 Sat by Pulse Oximetry 97 93 L 93 L Oxygen Delivery Method Nasal Cannula Nasal Cannula Oxygen Flow Rate (LPM) 2 2 05/04/18 07:39 05/04/18 08:01 05/04/18 08:06 Temperature 98.7 F Temperature Source Oral Pulse Rate 119 H Pulse Rate [Right Radial] 120 H Respiratory Rate 22 Blood Pressure [Right Arm] 113/62 Blood Pressure Mean [Right Arm] 79 Blood Pressure Source [Right Arm] Automatic Cuff Blood Pressure Position [Right Arm] Sitting 02 Sat by Pulse Oximetry 95 96 Oxygen Delivery Method Nasal Cannula Nasal Cannula Oxygen Flow Rate (LPM) 4 4 - Lab Data Lab Results 05/04/18 06:04: Influenza Type A Ag Negative, Influenza Type B Ag Negative 05/04/18 06:34: WBC 19.1 H, RBC 4.43 L, Hgb 13.5 L, Hct 41.0 L, MCV 92.7, MCH 30.4, MCHC 32.8, RDW 13.6, Plt Count 342 D, MPV 7.4, Neut % (Auto) 95.7 H, Lymph % (Auto) 1.4 L, [place] % (Auto) 1.7, Eos % (Auto) 1.1, Baso % (Auto) 0.2, Neut # (Auto) 18.3 H, Lymph # (Auto) 0.3 L, [place] # (Auto) 0.3, Eos # (Auto) 0.2, Baso # (Auto) 0.0, Total Counted 100, Neutrophils % (Manual) 86 H, Band Neutrophils % 12.0 H, Lymphocytes % (Manual) 2 L, Platelet Estimate Normal, RBC Morphology Normal, [place]le[place] 1+ 05/04/18 06:34: Sodium 139, Potassium 3.2 L, Chloride 101, Carbon Dioxide 24, Anion Gap 17.2 H, BUN 13, Creatinine 1.41 H, Estimated Creat Clear 83, Estimated GFR 50 L, Est GFR ( Amer) 61, Glucose 183 H, Calcium 9.0, Total Bilirubin 0.5, AST 28, ALT 33, Alkaline Phosphatase 58, Total Protein 7.5, Albumin 2.9 L, Globulin 4.6 H, Albumin/Globulin Ratio 0.6 L 05/04/18 06:34: Lactate 5.9 H Result diagrams: 05/04/18 06:34 05/04/18 06:34 Orders (Tests/Meds): ED MEDICATIONS Generic Name Dose Route Start Last Admin Trade Name Freq PRN Reason Stop Dose Admin Sodium Chloride 2,400 mls @ 999 mls/hr 05/04/18 07:30 05/04/18 07:47 Sod Chlor 0.9% 1000ml Bag IV 05/04/18 09:54 999 mls/hr .Q2H25M ANGELIKA Administration Vancomycin HCl 2,000 mg/ 250 mls @ 125 mls/hr 05/04/18 09:00 Sodium Chloride IV 05/18/18 08:59 Q18H ANGELIKA Piperacillin Sod/Tazobactam 100 mls @ 200 mls/hr 05/04/18 08:30 Sod 4.5 gm/ Sodium Chloride IV 05/18/18 08:29 Q8H ANGELIKA Protocol Sodium Chloride 10 ml 05/04/18 06:00 Saline Flush 10ml Syringe IV 06/03/18 05:59 NEEDED PRN Maintain IV Site Discontinued Medications Generic Name Dose Route Start Last Admin Trade Name Freq PRN Reason Stop Dose Admin Acetaminophen 1,000 mg 05/04/18 06:00 05/04/18 06:24 Tylenol 500mg Tablet PO 05/04/18 06:01 1,000 mg ONCE ONE Administration Albuterol/Ipratropium 3 ml 05/04/18 07:32 05/04/18 07:36 Duoneb 3ml Neb IH 05/04/18 07:33 3 ml ONCE ONE Administration Sodium Chloride 1,000 mls @ 999 mls/hr 05/04/18 06:00 05/04/18 06:24 Sod Chlor 0.9% 1000ml Bag IV 05/04/18 07:00 999 mls/hr .Q1H1M ANGELIKA Administration Ibuprofen 800 mg 05/04/18 06:00 05/04/18 06:24 Motrin 400mg Tablet PO 05/04/18 06:01 800 mg ONCE ONE Administration Lorazepam 1 mg 05/04/18 06:26 05/04/18 06:44 Ativan 2mg/Ml Vial IV 05/04/18 06:27 1 mg ONCE ONE Administration ORDERS Category Date Time Status XR chest portable Stat Exams 05/04/18 05:59 Taken Blood Culture Stat Micro 05/04/18 06:34 Received General Adult HPI - General Chief complaint: Fever Stated complaint: shortness of breath Time Seen by Provider: 05/04/18 06:10 Mode of Arrival: EMS Limitations: No Limitations Description of Symptoms (Recalled from ER Triage Doc. by RN): pt d/c from facility yesterday evening in which he was hospitalized for pna. pt returns shazia k to ed with chills and temp of 101.6. states that patient had incontinent spell which is out of the normal. - History of Present Illness HPI narrative: discharged yesterday following inpatient treatment of "septic pneumonia" per . Did well, last night spiked temp of 104 and developed nausea/vomiting - Related Data Home Medications Medication Instructions Recorded Confirmed Aspirin 81 mg PO DAILY 04/30/18 05/04/18 Butalb/Acetaminophen/Caffeine 1 tab PO DAILYP PRN 04/30/18 05/04/18 [Fiorcet Tablet] Cetirizine HCl [Zyrtec] 10 mg PO DAILY 04/30/18 05/04/18 Cholecalciferol (Vitamin D3) 50,000 unit PO WEEKLY 04/30/18 05/04/18 [Vitamin D3 50,000 unit Cap] Cholestyramine (with Sugar) 4 gm PO DAILY 04/30/18 05/04/18 [Cholestyramine Packet] Dicyclomine HCl 20 mg PO TID 04/30/18 05/04/18 Gabapentin [Gabapentin 300mg Cap] 300 mg PO TID 04/30/18 05/04/18 Glimepiride [Amaryl 2mg tablet] 2 mg PO DAILY 04/30/18 05/04/18 Levothyroxine Sodium 200 mcg PO DAILY 04/30/18 05/04/18 [Levothyroxine 200mcg (0.2mg) Tab] Lisinopril [Lisinopril 20mg Tab] 20 mg PO DAILY 04/30/18 05/04/18 Melatonin/Pyridoxine HCl (B6) 1 each PO HS 04/30/18 05/04/18 [Melatonin 5 mg Tablet] Metformin HCl 1,000 mg PO BIDWM 04/30/18 05/04/18 Tizanidine HCl [Zanaflex 4mg 4 mg PO TID 04/30/18 05/04/18 tab] Tramadol HCl [Tramadol 50mg 50 mg PO Q6HP PRN 04/30/18 05/04/18 Tab] Trazodone HCl 50 mg PO HS 04/30/18 05/04/18 Zolpidem Tartrate [Ambien 10mg 10 mg PO HSP PRN 04/30/18 05/04/18 tablet] azaTHIOprine [azaTHIOprine 50mg 50 mg PO BID 04/30/18 05/04/18 Tablet] predniSONE [Deltasone 10mg tablet] 30 mg PO DAILY 04/30/18 05/04/18 Cefdinir [Omnicef 300mg Capsule] 300 mg PO BID 05/04/18 05/04/18 Allergies Allergy/AdvReac Type Severity Reaction Status Date / Time Iodinated Contrast Media - AdvReac Verified 05/04/18 05:58 Oral and [facility] History - Hepatitis A Screen Drug use history?: No High risk sexual behaviors?: No History of sexually transmitted infection?: No Currently employed?: No Childcare worker?: No Do you have indoor plumbing?: Yes Do you have electricity?: Yes Attestation statement:: This patient has been screened for Hepatitis A risk factors. I have reviewed the patient's past medical history: Yes Medical History: Reports:: Diabetes Mellitus Type 2, Hypertension Denies:: Cancer, Diabetes Mellitus Type 1, MRSA Comment: Chronic autoimmune peripheral neuropathy-status post Rituxan therapy/IVIG therapy, follows with Dr. Machado, neurologist in [place]. Laterality Cases: Bilateral: Tonsillectomy Other Surgeries: Yes: Cardiac Catheterization Amputation: No Fractures: No - Social History Smoking Status: Never smoker Alcohol Intake: never Alcohol Intake Frequency:: holidays/special occasions only Substance Use Type: denies use Occupational Status: retired Housing: house Household Members: spouse - Psychiatric History Expresses thoughts of harming self/others: None Suicide Plan Description: No Plan Family Hx:: No significant family history, Non-contributory ROS Obtained: Yes All systems reviewed & no additional complaints - Constitutional Constitutional: Reports system reviewed and no additional complaints, except as docu, Reports chills, Reports fever(s) - Eyes Eyes: Reports system reviewed and no additional complaints, except as docu, Denies change in vision - ENT Ears, Nose, Mouth, and Throat: Reports system reviewed and no additional complaints, except as docu, Denies throat swelling - Cardiovascular Cardiovascular: Reports system reviewed and no additional complaints, except as docu, Denies chest pain, Denies chest pain with activity, Denies dyspnea, Denies dyspnea on exertion - Respiratory Respiratory: Yes system reviewed and no additional complaints, except as docu, Yes chest congestion, Yes cough - Gastrointestinal Gastrointestingal: Reports: system reviewed and no additional complaints, except as docu, nausea, vomiting - Musculoskeletal Musculoskeletal: Reports system reviewed and no additional complaints, except as docu, Reports joint pain, Reports joint stiffness, Denies joint swelling - Integumentary/Breasts Skin/Breast: Reports system reviewed and no additional complaints, except as docu, Denies jaundice, Reports rash - Neurologic Neurologic: Reports system reviewed and no additional complaints, except as docu, Denies focal weakness, Denies headache(s), Denies seizure-like activity, Denies syncope, Reports tremor(s) - Hematologic/Lymphatic Henatologic/Lymphatic: Reports system reviewed and no additional complaints, e xcept as docu, Reports easy bleeding, Reports easy bruising, Reports lymphadenopathy Physical Exam - General General appearance: alert, in distress - Head Head exam: atraumatic - Eye Eye exam: Present: normal appearance - ENT ENT exam: Present: normal exam, normal oropharynx - Neck Neck exam: Present: normal inspection, full ROM, trachea midline. Absent: meningismus, lymphadenopathy - Chest Chest inspection: Present: normal inspection - Respiratory Respiratory exam: Present: normal lung sounds bilaterally. Absent: respiratory distress - Cardiovascular Cardiovascular exam: Present: normal rhythm, tachycardia - Abdominal Exam Abdominal exam: Present: soft. Absent: tenderness, mass - Extremities Exam Extremities exam: Present: normal inspection, full ROM, normal capillary refill. Absent: calf tenderness - Neurological Exam Neurological exam: Present: alert, oriented X3 - Psychiatric Psychiatric exam: Present: normal affect, normal mood - Skin Skin exam: Present: warm - Expanded Skin Exam Type of lesion: Present: rash Distribution: generalized Description: Present: erythematous, swelling, macular. Absent: tenderness
[2018-05-04 06:40] LABS: Basophils % 0.2 % (0.1-2.0); Eosinophils # 0.2 K/mm3 (0.0-0.4); Eosinophils % 1.1 % (0.1-12.0); Hemoglobin 13.5 g/dL (14.1-18.0); Lymphocytes # 0.3 K/mm3 (0.7-4.5); Lymphocytes % 1.4 % (10-50); Mean Corpuscular HGB Conc 32.8 g/dL (31.8-35.4); Mean Corpuscular Hemoglobin 30.4 pg (27.0-31.2); Mean Corpuscular Volume 92.7 fl (80-94); Mean Platelet Volume 7.4 fl (7.4-10.4); Monocytes # 0.3 K/mm3 (0.1-1.0); Monocytes % 1.7 % (1.7-9.3); Neutrophils # 18.3 K/mm3 (1.8-7.8); Neutrophils % 95.7 % (37.0-80.0); Platelet Count 342 K/mm3 (142-424); Red Blood Count 4.43 M/mm3 (4.60-6.20); Red Cell Distribution Width 13.6 % (11.5-17.5); White Blood Count 19.1 K/mm3 (4.8-10.8)
[2018-05-04 06:46] LABS: Potassium 3.2 mmoL/L (3.5-5.1)
[2018-05-04 06:58] LABS: Albumin Level 2.9 gm/dL (3.4-5.0); Albumin/Globulin Ratio 0.6 (1.1-1.8); Anion Gap 17.2 mEq/L (5-15); Bilirubin,Total 0.5 mg/dL (0.2-1.0); Globulin 4.6 gm/dl (1.3-3.2); Total Protein,Serum 7.5 gm/dL (6.4-8.2)
[2018-05-04 06:59] LABS: Lymphocytes % 2 % (10-50); Neutrophils % 86 % (42-76); RBC Morphology Normal; Rouleaux 1+; Total Cells Counted 100
--- NOTE | 2018-05-04 09:10 | Pharmacy Consult Notes ---
- Pharmacy Consult Date: 05/04/18 Time: 09:09 Referring provider: DR. MACIAS Reason for Consult:: VANCOMYCIN DOSING Allergies and ADEs:: Allergies Allergy/AdvReac Type Severity Reaction Status Date / Time Iodinated Contrast Media - AdvReac Verified 05/04/18 05:58 Oral and Home Medications:: Home Medications Medication Instructions Recorded Confirmed Type Aspirin 81 mg PO DAILY 04/30/18 05/04/18 History Butalb/Acetaminophen/Caffeine 1 tab PO DAILYP PRN 04/30/18 05/04/18 History [Fiorcet Tablet] Cetirizine HCl [Zyrtec] 10 mg PO DAILY 04/30/18 05/04/18 History Cholecalciferol (Vitamin D3) 50,000 unit PO WEEKLY 04/30/18 05/04/18 History [Vitamin D3 50,000 unit Cap] Cholestyramine (with Sugar) 4 gm PO DAILY 04/30/18 05/04/18 History [Cholestyramine Packet] Dicyclomine HCl 20 mg PO TID 04/30/18 05/04/18 History Gabapentin [Gabapentin 300mg Cap] 300 mg PO TID 04/30/18 05/04/18 History Glimepiride [Amaryl 2mg tablet] 2 mg PO DAILY 04/30/18 05/04/18 History Levothyroxine Sodium 200 mcg PO DAILY 04/30/18 05/04/18 History [Levothyroxine 200mcg (0.2mg) Tab] Lisinopril [Lisinopril 20mg Tab] 20 mg PO DAILY 04/30/18 05/04/18 History Melatonin/Pyridoxine HCl (B6) 1 each PO HS 04/30/18 05/04/18 History [Melatonin 5 mg Tablet] Metformin HCl 1,000 mg PO BIDWM 04/30/18 05/04/18 History Tizanidine HCl [Zanaflex 4mg 4 mg PO TID 04/30/18 05/04/18 History tab] Tramadol HCl [Tramadol 50mg 50 mg PO Q6HP PRN 04/30/18 05/04/18 History Tab] Trazodone HCl 50 mg PO HS 04/30/18 05/04/18 History Zolpidem Tartrate [Ambien 10mg 10 mg PO HSP PRN 04/30/18 05/04/18 History tablet] azaTHIOprine [azaTHIOprine 50mg 50 mg PO BID 04/30/18 05/04/18 History Tablet] predniSONE [Deltasone 10mg tablet] 30 mg PO DAILY 04/30/18 05/04/18 History Cefdinir [Omnicef 300mg Capsule] 300 mg PO BID 05/04/18 05/04/18 History Height: 1.78 m Weight: 118.501 kg Laboratory Results:: Laboratory Results - last 24 hr 05/04/18 06:04: Influenza Type A Ag Negative, Influenza Type B Ag Negative 05/04/18 06:34: WBC 19.1 H, RBC 4.43 L, Hgb 13.5 L, Hct 41.0 L, MCV 92.7, MCH 30.4, MCHC 32.8, RDW 13.6, Plt Count 342 D, MPV 7.4, Neut % (Auto) 95.7 H, Lymph % (Auto) 1.4 L, [place] % (Auto) 1.7, Eos % (Auto) 1.1, Baso % (Auto) 0.2, Neut # (Auto) 18.3 H, Lymph # (Auto) 0.3 L, [place] # (Auto) 0.3, Eos # (Auto) 0.2, Baso # (Auto) 0.0, Total Counted 100, Neutrophils % (Manual) 86 H, Band Neutr ophils % 12.0 H, Lymphocytes % (Manual) 2 L, Platelet Estimate Normal, RBC Morphology Normal, Rouleaux 1+ 05/04/18 06:34: Sodium 139, Potassium 3.2 L, Chloride 101, Carbon Dioxide 24, Anion Gap 17.2 H, BUN 13, Creatinine 1.41 H, Estimated Creat Clear 83, Estimated GFR 50 L, Est GFR ( Amer) 61, Glucose 183 H, Calcium 9.0, Total Bilirubin 0.5, AST 28, ALT 33, Alkaline Phosphatase 58, Total Protein 7.5, Albumin 2.9 L, Globulin 4.6 H, Albumin/Globulin Ratio 0.6 L 05/04/18 06:34: Lactate 5.9 H Medical History: Reports:: Diabetes Mellitus Type 2, Hypertension Denies:: Cancer, Diabetes Mellitus Type 1, MRSA Assessment and Plan - Assessment and plan all Dx Assessment and Plan for all problems:: BASED ON PATIENT'S FACTORS, RECOMMEND STARTING WITH VANCOMYCIN 2000 MG Q18H AT THIS TIME. PHARMACY WILL FOLLOW DAILY AND ADJUST APPROPRIATE. RYAN ANDERSON,PHARMD
--- NOTE | 2018-05-04 09:17 | Sepsis Event Note ---
Tissue Perfusion Evaluation Sepsis Re-Evaluation Performed: Yes Date Performed: 05/04/18 Time Performed: : Most Recent Vital Signs: Temperature 97.7 F 05/04/18 09:06 Temperature Source Oral 05/04/18 09:06 Pulse Rate 109 H 05/04/18 09:06 Respiratory Rate 20 05/04/18 09:06 Blood Pressure 93/54 L 05/04/18 09:06 Blood Pressure Mean 67 05/04/18 09:06 Blood Pressure Source Automatic Cuff 05/04/18 09:06 Blood Pressure Position Supine 05/04/18 09:06 02 Sat by Pulse Oximetry 95 05/04/18 09:06 Oxygen Delivery Method 05/04/18 09:06 Oxygen Flow Rate (LPM) 4 05/04/18 08:58
--- NOTE | 2018-05-04 10:11 | Pharmacy Consult Notes ---
[facility] Pharmacy VTE Monitoring - Patient Demographics Admission date: 05/04/18 Report Date: 05/04/18 Time: 10:10 Allergies/Adverse Reactions: Patient Allergies Iodinated Contrast Media - Oral and Adverse Reaction (Verified 05/04/18 05:58) Height: 1.78 m Weight: 118.501 kg Patient Problems: Current Active Problems Sepsis (Acute) Immunosuppression due to drug therapy (Acute) - VTE Risk Labs: VTE Related Lab Results Hgb 13.5 g/dL (14.1-18.0) L 05/04/18 06:34 Hct 41.0 % (42.0-52.0) L 05/04/18 06:34 Plt Count 342 K/mm3 (142-424) D 05/04/18 06:34 BUN 13 mg/dL (7-18) 05/04/18 06:34 Creatinine 1.41 mg/dL (0.70-1.30) H 05/04/18 06:34 Estimated Creat Clear 83 mL/min (50-200) 05/04/18 06:34 Was VTE Risk Assessment Performed: Yes VTE Score: 4 VTE Risk Level: Low Risk - Prophylaxis Types of VTE Prophylaxis: TEDS Knee High (JULIO CESAR HOSE ORDER PLACED)
--- NOTE | 2018-05-04 17:07 | History & Physical Report ---
*Admission Date: 05/04/18 *Chief complaint: Recurrent Fevers and MS Changes *History of present illness: Admission History for Admission on 04/30 68-year-old white male with history of chronic autoimmune polyneuropathy, diagnosed about 3 years ago, who has been treated with Rituxan therapy by his neurologist, previously in [facility], after IVIG failed. He has recently moved to the [facility] to be closer to his daughter. He has been feeling fairly well except for chronic fatigue from his neuropathy issues until approximately a week ago when he began to have increasing cough and sputum production. 2 days ago he went to see a nurse practitioner in [place] who prescribed a Z- Max for "bronchitis" but he did not feel up to going to get the prescription and so yesterday began to feel worse and last night began to have high fevers. This morning he was confused, had a temperature elevation at home of 103 degrees, and then presented to the emergency department here. Found to have leukocytosis, tachycardia, fever and infiltrate on chest x-ray, admitted to hospital for treatment of pneumonia given his immunocompromise status and potential sepsis. Hospital Course from 04/30 through 05/03 Admitted for sepsis due to pneumonia. Brisk response to IV Ceftriaxone and Azith. Sputum culture obtained. Weaned off O2 during admission. Remained hemodynamically stable with no further respiratory distress. Tolerated Regular diet. Fever defervesced. Monitored sputum culture, though no result prior to DC> Due to clinical improvement, met criteria to be discharged home. Finished Azithromycin course during admission. Transitioned to PO Cefdinir for completion of 14d course of therapy. Will follow Sputum Culture, if sensitivities differ form DC Abx, will change treatment in outpatient setting. plan for follow-up in the next week with PCP. Interval history: Patient was discharged home as noted above, and initially did well, with no fever and good p.o. intake. Unfortunately, early this morning around 2 AM the patient awoke with fever to 102, mental status changes and no improvement with antipyretics. Had some abdominal pain, and given his fever and chilling was brought back to the emergency department. Found to have recurrent leukocytosis, lactic acidosis and afebrile status, readmitted to hospital for further diagnostic testing and reassessment. I instructed emergency department to begin broad-spectrum antibiotics, cultures have been done. [facility] History I have reviewed the patient's past medical history: Yes Medical History: Reports:: Diabetes Mellitus Type 2, Hypertension Denies:: Cancer, Diabetes Mellitus Type 1, MRSA *Have you ever received a pneumonia vaccine?: Yes *Have you received a flu vaccine this season?: No Comment:: Chronic Immune polyneuropathy - immunosuppressed Laterality Cases: Bilateral: Tonsillectomy Other Surgeries: Yes: Cardiac Catheterization, Hernia Repair Amputation: No Fractures: No - *Social History Educational Level: Completed High School Smoking Status: Never smoker Alcohol Intake: never Alcohol Intake Frequency:: holidays/special occasions only Substance Use Type: denies use *Occupational Status:: retired Housing: house Household Members: spouse *Travel in the last 8 weeks: None - Psychiatric History Expresses thoughts of harming self/others: None Suicide Plan Description: No Plan Family Hx:: No significant family history, Non-contributory Review of Systems - Review of Systems Review of systems:: pertinent systems reviewed and negative unless documented below - Constitutional Reports anorexia, Reports body ache(s), Reports chills, Reports fever(s) - Eyes Reports blurry vision, Reports change in vision, Denies blind spots - ENT Reports poor balance, Reports dizziness, Denies abnormal hearing, Denies bleeding gums, Denies change in voice - *Cardiovascular Denies chest pain, Denies chest pain at rest, Denies shortness of breath, Denies generalized swelling, Denies irregular heart rhythm - *Respiratory Denies change in phlegm color, Denies chest congestion, Denies cough - *Gastrointestinal Reports abdominal pain, Reports belching, Reports bloating, Denies vomiting blood, Denies bright, red blood in stools, Denies black, tarry stools - *Genitourinary Denies difficulty urinating - *Musculoskeletal Reports abnormal walking, Reports decreased muscle mass - *Neurologic Reports dizziness, Reports numbness, Reports tingling/numbness/burning sensations, Reports tremor(s), Denies localized weakness, Denies headache(s), Denies seizure-like activity, Denies fainting - Psychiatric Reports abnormal sleep pattern Meds Home Medications Medication Instructions Recorded Confirmed Type Butalb/Acetaminophen/Caffeine 1 tab PO DAILYP PRN 04/30/18 05/04/18 History [Fiorcet Tablet] Cetirizine HCl [Zyrtec] 10 mg PO DAILY PRN 04/30/18 05/04/18 History Cholecalciferol (Vitamin D3) 50,000 unit PO WEEKLY 04/30/18 05/04/18 History [Vitamin D3 50,000 unit Cap] Cholestyramine (with Sugar) 4 gm PO DAILY 04/30/18 05/04/18 History [Cholestyramine Packet] Dicyclomine HCl 20 mg PO TID 04/30/18 05/04/18 History Gabapentin [Gabapentin 300mg Cap] 300 mg PO TID 04/30/18 05/04/18 History Glimepiride [Amaryl 2mg tablet] 2 mg PO DAILY 04/30/18 05/04/18 History Levothyroxine Sodium 200 mcg PO DAILY 04/30/18 05/04/18 History [Levothyroxine 200mcg (0.2mg) Tab] Lisinopril [Lisinopril 20mg Tab] 20 mg PO DAILY 04/30/18 05/04/18 History Melatonin/Pyridoxine HCl (B6) 1 each PO HS 04/30/18 05/04/18 History [Melatonin 5 mg Tablet] Metformin HCl 1,000 mg PO BID 04/30/18 05/04/18 History Tramadol HCl [Tramadol 50mg 50 mg PO Q6HP PRN 04/30/18 05/04/18 History Tab] Trazodone HCl 50 mg PO HS 04/30/18 05/04/18 History Zolpidem Tartrate [Ambien 10mg 10 mg PO HSP PRN 04/30/18 05/04/18 History tablet] azaTHIOprine [azaTHIOprine 50mg 50 mg PO BID 04/30/18 05/04/18 History Tablet] predniSONE [Deltasone 10mg tablet] 30 mg PO DAILY 04/30/18 05/04/18 History Aspirin [Adult Low Dose Aspirin EC] 81 mg PO DAILY 05/04/18 05/04/18 History Cefdinir [Omnicef 300mg Capsule] 300 mg PO BID 05/04/18 05/04/18 History Metoprolol Succinate 50 mg PO DAILY 05/04/18 05/04/18 History Tizanidine HCl 2 mg PO TID 05/04/18 05/04/18 History Allergies Allergy/AdvReac Type Severity Reaction Status Date / Time Iodinated Contrast Media - AdvReac Verified 05/04/18 05:58 Oral and Exam Vital signs and Labs for Last 24 Hours: Temp Pulse Resp BP Pulse Ox 98.2 F 80 22 103/78 L 95 05/04/18 14:51 05/04/18 14:51 05/04/18 14:51 05/04/18 14:51 05/04/18 14:51 Laboratory Results - last 24 hr 05/04/18 06:04: Influenza Type A Ag Negative, Influenza Type B Ag Negative 05/04/18 06:34: WBC 19.1 H, RBC 4.43 L, Hgb 13.5 L, Hct 41.0 L, MCV 92.7, MCH 30.4, MCHC 32.8, RDW 13.6, Plt Count 342 D, MPV 7.4, Neut % (Auto) 95.7 H, Lymph % (Auto) 1.4 L, [place] % (Auto) 1.7, Eos % (Auto) 1.1, Baso % (Auto) 0.2, Neut # (Auto) 18.3 H, Lymph # (Auto) 0.3 L, [place] # (Auto) 0.3, Eos # (Auto) 0.2, Baso # (Auto) 0.0, Total Counted 100, Neutrophils % (Manual) 86 H, Band Neutrophils % 12.0 H, Lymphocytes % (Manual) 2 L, Platelet Estimate Normal, RBC Morphology Normal, Rouleaux 1+ 05/04/18 06:34: Sodium 139, Potassium 3.2 L, Chloride 101, Carbon Dioxide 24, Anion Gap 17.2 H, BUN 13, Creatinine 1.41 H, Estimated Creat Clear 83, Estimated GFR 50 L, Est GFR ( Amer) 61, Glucose 183 H, Calcium 9.0, Total Bilirubin 0.5, AST 28, ALT 33, Alkaline Phosphatase 58, Total Protein 7.5, Albumin 2.9 L, Globulin 4.6 H, Albumin/Globulin Ratio 0.6 L 05/04/18 06:34: Lactate 5.9 H 05/04/18 11:24: POC Glucose 120 H 05/04/18 13:37: Lactate 6.2 H 05/04/18 16:15: Lactate 4.7 H 05/04/18 16:18: POC Glucose 170 H I & O for Last 24 hours: Intake & Output 02/15/05/03/18 05/04/18 05/05/18 11:59 11:59 11:59 11:59 Intake Total 3990 / 3990 Balance 3990 / 3990 Weight 261 lb 4 oz - Constitutional no acute distress, obese - *Routine HEENT Exam Head: Present: normocephalic, atraumatic Eye: Present: EOMI, PERRL, normal accommodation ENT: Present: mucous membranes moist - *Routine Neck Exam Present: supple, full ROM. Absent: JVD - Routine Chest/Breast/Axilla Exam Chest wall: Absent: tenderness Breast: Absent: tenderness Axillae: Absent: lymphadenopathy - *Routine Respiratory Exam Present: CTA bilaterally - *Routine Cardiovascular Exam Present: RRR, Normal S1, Normal S2 - *Routine Abdominal Exam Present: soft, normoactive bowel sounds - *Routine Rectal Exam Patient deferred: visual exam, prostate exam Visual: Present: normal rectal tone Prostate: Absent: enlargement, tenderness, boggy - *Routine Extremities Exam Absent: cyanosis, clubbing - *Routine Neurological Exam Present: alert, oriented X3 sensory loss in extremities as noted prior - unchanged Assessment and Plan (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 Current visit: Yes Status: Acute Category: Medical Code(s): Z79.899 - Other jail (current) drug therapy Broad spectrum abx.... exam essentially negative including prostate. Check CT of chest/abd and echo (2) Sepsis Current visit: Yes Status: Acute Category: Medical Code(s): A41.9 - Sepsis, unspecified organism See notes above. (3) Lingular pneumonia Current visit: No Status: Acute Category: Medical Code(s): J18.9 - Pneumonia, unspecified organism (4) Chronic inflammatory demyelinating neuropathy Current visit: No Status: Chronic Category: Medical Code(s): G61.81 - Chronic inflammatory demyelinating polyneuritis Continue meds as noted.
[2018-05-04 17:25] LABS: Amylase 101 U/L (25-115); Lipase 1147 u/L (73-393)
[2018-05-05 06:38] LABS: Basophils # 0.1 K/mm3 (0-0.2); Basophils % 0.1 % (0.1-2.0); Eosinophils # 0.1 K/mm3 (0.0-0.4); Eosinophils % 0.2 % (0.1-12.0); Hematocrit 39.3 % (42.0-52.0); Hemoglobin 12.7 g/dL (14.1-18.0); Lymphocytes # 0.4 K/mm3 (0.7-4.5); Mean Corpuscular HGB Conc 32.3 g/dL (31.8-35.4); Mean Corpuscular Hemoglobin 30.6 pg (27.0-31.2); Mean Corpuscular Volume 94.5 fl (80-94); Mean Platelet Volume 7.9 fl (7.4-10.4); Monocytes # 0.9 K/mm3 (0.1-1.0); Monocytes % 2.4 % (1.7-9.3); Neutrophils # 36.9 K/mm3 (1.8-7.8); Neutrophils % 96.2 % (37.0-80.0); Platelet Count 277 K/mm3 (142-424); Red Blood Count 4.15 M/mm3 (4.60-6.20); White Blood Count 38.3 K/mm3 (4.8-10.8)
[2018-05-05 06:47] LABS: Anion Gap 17.1 mEq/L (5-15); Potassium 4.1 mmoL/L (3.5-5.1)
[2018-05-05 06:55] LABS: Calcium 7.4 mg/dL (8.5-10.1)
[2018-05-05 07:34] LABS: Eosinophils % 1 % (0-3); Lymphocytes % 1 % (10-50); Monocytes % 1 % (2-9); Neutrophils % 78 % (42-76); Total Cells Counted 100
[2018-05-05 08:18] LABS: Metamyelocytes % 3 (0-1)
--- NOTE | 2018-05-05 09:02 | Discharge Summary ---
General - General Admission date:: 05/04/18 Discharge date: 05/05/18 HPI HPI: Admission History for Admission on 04/30 68-year-old white male with history of chronic autoimmune polyneuropathy, diagnosed about 3 years ago, who has been treated with Rituxan therapy by his neurologist, previously in [facility], after IVIG failed. He has recently moved to the [facility] to be closer to his daughter. He has been feeling fairly well except for chronic fatigue from his neuropathy issues until approximately a week ago when he began to have increasing cough and sputum production. 2 days ago he went to see a nurse practitioner in [place] who prescribed a Z- Max for "bronchitis" but he did not feel up to going to get the prescription and so yesterday began to feel worse and last night began to have high fevers. This morning he was confused, had a temperature elevation at home of 103 degrees, and then presented to the emergency department here. Found to have leukocytosis, tachycardia, fever and infiltrate on chest x-ray, admitted to hospital for treatment of pneumonia given his immunocompromise status and potential sepsis. Hospital Course from 04/30 through 05/03 Admitted for sepsis due to pneumonia. Brisk response to IV Ceftriaxone and Azith. Sputum culture obtained. Weaned off O2 during admission. Remained hemodynamically stable with no further respiratory distress. Tolerated Regular diet. Fever defervesced. Monitored sputum culture, though no result prior to DC> Due to clinical improvement, met criteria to be discharged home. Finished Azithromycin course during admission. Transitioned to PO Cefdinir for completion of 14d course of therapy. Will follow Sputum Culture, if sensitivities differ form DC Abx, will change treatment in outpatient setting. plan for follow-up in the next week with PCP. Interval history: Patient was discharged home as noted above, and initially did well, with no fever and good p.o. intake. Unfortunately, early this morning around 2 AM the patient awoke with fever to 102, mental status changes and no improvement with antipyretics. Had some abdominal pain, and given his fever and chilling was brought back to the emergency department. Found to have recurrent leukocytosis, lactic acidosis and afebrile status, readmitted to hospital for further diagnostic testing and reassessment. I instructed emergency department to begin broad-spectrum antibiotics, cultures have been done. Hospital Course Hospital Course: After initial admission patient felt good after fluid bolus and initial antibiotics were given. Patient felt improved through the night but this morning is a little weaker. Is able to stand with maximum assist to go to the bathroom. He is developed some diarrhea. I reviewed CT scanning from yesterday which showed evidence of mesenteric inflammation. Lung CT scan also showed scattered very wispy infiltrates. This morning patient's labs have worsened, with elevated white count and elevated creatinine consistent with acute kidney injury. I have changed antibiotics and eliminated Zosyn and started cefepime and Flagyl in its place. C. difficile cultures and PCR of stool testing are pending. Given patient's worsening kidney function, evidence of worsening white count and questionable infection source I believe patient would be benefited by transfer t o a tertiary care center with infectious disease and nephrology consultation available. Patient has been accepted in transfer of hospitalist service at [facility] and he will be transferred there when bed available. In the meantime we will continue broad-spectrum antibiotics, fluid support and oxygenation therapy. Objective Vital signs: Temp Pulse Resp BP Pulse Ox 98.7 F 117 H 20 82/52 L 91 L 05/05/18 08:00 05/05/18 08:00 05/05/18 08:00 05/05/18 08:00 05/05/18 08:00 Narrative: Patient is alert. Oriented x3. Patient has clear lungs in the anterior and posterior ballesteros. Heart rate is regular. No murmurs or gallops noted. Abdomen is soft, minimal tenderness but is very diffuse and nonlocalized. No rebound or guarding. Extremities have a fine macular rash at the ankles that was not apparent yesterday. No petechiae or purpura. No edema or clubbing. Perfusion is good and capillary refill is less than 3 seconds. Patient is globally weak but has no focal cranial nerve deficits and is able to move arms and legs symmetrically. Remains afflicted with a sensory loss in his legs from his chronic neuropathy. Results Labs on day of discharge: Labs from last 24 hours 05/05/18 05/05/18 05/04/18 05:35 05:35 21:06 WBC 38.3 H* D RBC 4.15 L Hgb 12.7 L Hct 39.3 L MCV 94.5 H MCH 30.6 MCHC 32.3 RDW 14.0 Plt Count 277 MPV 7.9 Neut % (Auto) 96.2 H Lymph % (Auto) 1.0 L [place] % (Auto) 2.4 Eos % (Auto) 0.2 Baso % (Auto) 0.1 Neut # (Auto) 36.9 H Lymph # (Auto) 0.4 L [place] # (Auto) 0.9 Eos # (Auto) 0.1 Baso # (Auto) 0.1 Total Counted 100 Neutrophils % (Manual) 78 H Band Neutrophils % 16.0 H Lymphocytes % (Manual) 1 L Monocytes % (Manual) 1 L Eosinophils % (Manual) 1 Metamyelocytes % 3 H Myelocytes % [employer] Platelet Estimate Normal Sodium 134 L Potassium 4.1 D Chloride 99 Carbon Dioxide 22 Anion Gap 17.1 H BUN 29 H D Creatinine 3.61 H D Estimated Creat Clear 34 Estimated GFR 17 L* Est GFR ( Amer) 21 L D Glucose 156 H POC Glucose 165 H Lactate Calcium 7.4 L D Amylase Lipase 05/04/18 05/04/18 05/04/18 16:18 16:15 13:37 WBC RBC Hgb Hct MCV MCH MCHC RDW Plt Count MPV Neut % (Auto) Lymph % (Auto) [place] % (Auto) Eos % (Auto) Baso % (Auto) Neut # (Auto) Lymph # (Auto) [place] # (Auto) Eos # (Auto) Baso # (Auto) Total Counted Neutrophils % (Manual) Band Neutrophils % Lymphocytes % (Manual) Monocytes % (Manual) Eosinophils % (Manual) Metamyelocytes % Myelocytes % Platelet Estimate Sodium Potassium Chloride Carbon Dioxide Anion Gap BUN Creatinine Estimated Creat Clear Estimated GFR Est GFR ( Amer) Glucose POC Glucose 170 H Lactate 4.7 H 6.2 H Calcium Amylase Lipase 05/04/18 05/04/18 11:24 06:34 WBC RBC Hgb Hct MCV MCH MCHC RDW Plt Count MPV Neut % (Auto) Lymph % (Auto) [place] % (Auto) Eos % (Auto) Baso % (Auto) Neut # (Auto) Lymph # (Auto) [place] # (Auto) Eos # (Auto) Baso # (Auto) Total Counted Neutrophils % (Manual) Band Neutrophils % Lymphocytes % (Manual) Monocytes % (Manual) Eosinophils % (Manual) Metamyelocytes % Myelocytes % Platelet Estimate Sodium Potassium Chloride Carbon Dioxide Anion Gap BUN Creatinine Estimated Creat Clear Estimated GFR Est GFR ( Amer) Glucose POC Glucose 120 H Lactate Calcium Amylase 101 Lipase 1147 H DS: Diagnosis - Discharge Diagnosis (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 Status: Acute (2) Sepsis Status: Acute (3) Lingular pneumonia Status: Acute (4) Chronic inflammatory demyelinating neuropathy Status: Chronic (5) Diarrhea Status: Acute Discharge Plan - Patient Discharge Instructions ACTIVITY: Continue current activity DIET: continue same diet Patient Instructions: DI for Pneumonia -- Adult, DI for Sepsis -- Adult - Follow up Plan Disposition: Xfer Short-Term Hosp Home Medications: Home Medications Medication Instructions Recorded Confirmed Type Butalb/Acetaminophen/Caffeine 1 tab PO DAILYP PRN 04/30/18 05/04/18 History [Fiorcet Tablet] Cetirizine HCl [Zyrtec] 10 mg PO DAILY PRN 04/30/18 05/04/18 History Cholecalciferol (Vitamin D3) 50,000 unit PO WEEKLY 04/30/18 05/04/18 History [Vitamin D3 50,000 unit Cap] Cholestyramine (with Sugar) 4 gm PO DAILY 04/30/18 05/04/18 History [Cholestyramine Packet] Dicyclomine HCl 20 mg PO TID 04/30/18 05/04/18 History Gabapentin [Gabapentin 300mg Cap] 300 mg PO TID 04/30/18 05/04/18 History Glimepiride [Amaryl 2mg tablet] 2 mg PO DAILY 04/30/18 05/04/18 History Levothyroxine Sodium 200 mcg PO DAILY 04/30/18 05/04/18 History [Levothyroxine 200mcg (0.2mg) Tab] Lisinopril [Lisinopril 20mg Tab] 20 mg PO DAILY 04/30/18 05/04/18 History Melatonin/Pyridoxine HCl (B6) 1 each PO HS 04/30/18 05/04/18 History [Melatonin 5 mg Tablet] Metformin HCl 1,000 mg PO BID 04/30/18 05/04/18 History Tramadol HCl [Tramadol 50mg 50 mg PO Q6HP PRN 04/30/18 05/04/18 History Tab] Trazodone HCl 50 mg PO HS 04/30/18 05/04/18 History Zolpidem Tartrate [Ambien 10mg 10 mg PO HSP PRN 04/30/18 05/04/18 History tablet] azaTHIOprine [azaTHIOprine 50mg 50 mg PO BID 04/30/18 05/04/18 History Tablet] predniSONE [Deltasone 10mg tablet] 30 mg PO DAILY 04/30/18 05/04/18 History Aspirin [Adult Low Dose Aspirin EC] 81 mg PO DAILY 05/04/18 05/04/18 History Cefdinir [Omnicef 300mg Capsule] 300 mg PO BID 05/04/18 05/04/18 History Metoprolol Succinate 50 mg PO DAILY 05/04/18 05/04/18 History Tizanidine HCl 2 mg PO TID 05/04/18 05/04/18 History Prescriptions/Medication Reconciliation: No Action Zolpidem Tartrate [Ambien 10mg tablet] 10 mg PO HSP PRN PRN Reason: Sleep Lisinopril [Lisinopril 20mg Tab] 20 mg PO DAILY Levothyroxine Sodium [Levothyroxine 200mcg (0.2mg) Tab] 200 mcg PO DAILY Trazodone HCl 50 mg PO HS Tramadol HCl [Tramadol 50mg Tab] 50 mg PO Q6HP PRN PRN Reason: BREAKTHROUGH PAIN Metformin HCl 1,000 mg PO BID Melatonin/Pyridoxine HCl (B6) [Melatonin 5 mg Tablet] 1 each PO HS Glimepiride [Amaryl 2mg tablet] 2 mg PO DAILY Dicyclomine HCl 20 mg PO TID Cholestyramine (with Sugar) [Cholestyramine Packet] 4 gm PO DAILY Cholecalciferol (Vitamin D3) [Vitamin D3 50,000 unit Cap] 50,000 unit PO WEEKLY Cetirizine HCl [Zyrtec] 10 mg PO DAILY PRN PRN Reason: allergies Butalb/Acetaminophen/Caffeine [Fiorcet Tablet] 1 tab PO DAILYP PRN PRN Reason: HEADACHES predniSONE [Deltasone 10mg tablet] 30 mg PO DAILY azaTHIOprine [azaTHIOprine 50mg Tablet] 50 mg PO BID Cefdinir [Omnicef 300mg Capsule] 300 mg PO BID Aspirin [Adult Low Dose Aspirin EC] 81 mg PO DAILY Metoprolol Succinate 50 mg PO DAILY Tizanidine HCl 2 mg PO TID Gabapentin [Gabapentin 300mg Cap] 300 mg PO TID
--- NOTE | 2018-05-05 09:32 | Consult Report ---
<Cheryl Conner - Last Filed: 05/05/18 09:29> *Admission Date: 05/04/18 *Chief complaint: abnormal CT/ r/o pancreatitis *History of present illness: This is a 68 year old male with a hx of chronic autoimmune polyneuropathy aqnd is on Rituxan and Azathioprine. The pt was admitted here from 04/30-05/03 with acute PNA and was d/c home. He then presented back at ED on 05/04 with fever, SOB, and AMS. He did meet sepsis criteria and has been admitted for evaluation. CT ABD did show haziness in the messentery inferior to pancreas and lipase did increase to around 1100. GI was consulted for early pancreatitis. Pt is being transferred to [facility]iatric. [facility] History Medical History: Reports:: Diabetes Mellitus Type 2, Hypertension Denies:: Cancer, Diabetes Mellitus Type 1, MRSA *Have you ever received a pneumonia vaccine?: Yes *Have you received a flu vaccine this season?: No Laterality Cases: Bilateral: Tonsillectomy Other Surgeries: Yes: Cardiac Catheterization, Hernia Repair Amputation: No Fractures: No - *Social History Educational Level: Completed High School Smoking Status: Never smoker Alcohol Intake: never Alcohol Intake Frequency:: holidays/special occasions only Substance Use Type: denies use *Occupational Status:: retired Housing: house Household Members: spouse *Travel in the last 8 weeks: None - Psychiatric History Expresses thoughts of harming self/others: None Suicide Plan Description: No Plan Family Hx:: No significant family history, Non-contributory Review of Systems - Constitutional Reports fatigue, Reports fever(s) - *Respiratory Reports shortness of breath - *Gastrointestinal Reports loose stools - *Neurologic Reports abnormal walking, Reports unsteadiness, Reports dizziness, Reports numbness, Reports tingling/numbness/burning sensations, Reports tremor(s), Denies abnormal hearing, Denies localized weakness, Denies headache(s), Denies seizure-like activity, Denies fainting Meds Home Medications Medication Instructions Recorded Confirmed Type Butalb/Acetaminophen/Caffeine 1 tab PO DAILYP PRN 04/30/18 05/04/18 History [Fiorcet Tablet] Cetirizine HCl [Zyrtec] 10 mg PO DAILY PRN 04/30/18 05/04/18 History Cholecalciferol (Vitamin D3) 50,000 unit PO WEEKLY 04/30/18 05/04/18 History [Vitamin D3 50,000 unit Cap] Cholestyramine (with Sugar) 4 gm PO DAILY 04/30/18 05/04/18 History [Cholestyramine Packet] Dicyclomine HCl 20 mg PO TID 04/30/18 05/04/18 History Gabapentin [Gabapentin 300mg Cap] 300 mg PO TID 04/30/18 05/04/18 History Glimepiride [Amaryl 2mg tablet] 2 mg PO DAILY 04/30/18 05/04/18 History Levothyroxine Sodium 200 mcg PO DAILY 04/30/18 05/04/18 History [Levothyroxine 200mcg (0.2mg) Tab] Lisinopril [Lisinopril 20mg Tab] 20 mg PO DAILY 04/30/18 05/04/18 History Melatonin/Pyridoxine HCl (B6) 1 each PO HS 04/30/18 05/04/18 History [Melatonin 5 mg Tablet] Metformin HCl 1,000 mg PO BID 04/30/18 05/04/18 History Tramadol HCl [Tramadol 50mg 50 mg PO Q6HP PRN 04/30/18 05/04/18 History Tab] Trazodone HCl 50 mg PO HS 04/30/18 05/04/18 History Zolpidem Tartrate [Ambien 10mg 10 mg PO HSP PRN 04/30/18 05/04/18 History tablet] azaTHIOprine [azaTHIOprine 50mg 50 mg PO BID 04/30/18 05/04/18 History Tablet] predniSONE [Deltasone 10mg tablet] 30 mg PO DAILY 04/30/18 05/04/18 History Aspirin [Adult Low Dose Aspirin EC] 81 mg PO DAILY 05/04/18 05/04/18 History Cefdinir [Omnicef 300mg Capsule] 300 mg PO BID 05/04/18 05/04/18 History Metoprolol Succinate 50 mg PO DAILY 05/04/18 05/04/18 History Tizanidine HCl 2 mg PO TID 05/04/18 05/04/18 History Allergies Allergy/AdvReac Type Severity Reaction Status Date / Time Iodinated Contrast Media - AdvReac Verified 05/04/18 05:58 Oral and Exam Vital signs and Labs for Last 24 Hours: Temp Pulse Resp BP Pulse Ox 98.7 F 126 H 20 82/52 L 91 L 05/05/18 08:00 05/05/18 08:00 05/05/18 08:00 05/05/18 08:00 05/05/18 08:00 Laboratory Results - last 24 hr 05/04/18 06:34: Amylase 101, Lipase 1147 H 05/04/18 11:24: POC Glucose 120 H 05/04/18 13:37: Lactate 6.2 H 05/04/18 16:15: Lactate 4.7 H 05/04/18 16:18: POC Glucose 170 H 05/04/18 21:06: POC Glucose 165 H 05/05/18 05:35: WBC 38.3 H* D, RBC 4.15 L, Hgb 12.7 L, Hct 39.3 L, MCV 94.5 H, MCH 30.6, MCHC 32.3, RDW 14.0, Plt Count 277, MPV 7.9, Neut % (Auto) 96.2 H, Lymph % (Auto) 1.0 L, Becker % (Auto) 2.4, Eos % (Auto) 0.2, Baso % (Auto) 0.1, Neut # (Auto) 36.9 H, Lymph # (Auto) 0.4 L, Becker # (Auto) 0.9, Eos # (Auto) 0.1, Baso # (Auto) 0.1, Total Counted 100, Neutrophils % (Manual) 78 H, Band Neutrophils % 16.0 H, Lymphocytes % (Manual) 1 L, Monocytes % (Manual) 1 L, Eosinophils % (Manual) 1, Metamyelocytes % 3 H, Myelocytes % Play Reader, Platelet Estimate Normal 05/05/18 05:35: Sodium 134 L, Potassium 4.1 D, Chloride 99, Carbon Dioxide 22, Anion Gap 17.1 H, BUN 29 H D, Creatinine 3.61 H D, Estimated Creat Clear 34, Estimated GFR 17 L*, Est GFR ( Amer) 21 L D, Glucose 156 H, Calcium 7.4 L D I & O for Last 24 hours: Intake & Output 05/02/18 05/03/18 05/04/18 05/05/18 23:59 23:59 23:59 23:59 Intake Total 4090 / 4090 400 / 400 Balance 4090 / 4090 400 / 400 Weight 261 lb 4 oz Microbiology Reports for the Last 24 Hours: Microbiology 05/04/18 06:30 Sputum - Expectorated Sputum Gram Stain - Final - *Routine Respiratory Exam Present: decreased breath sounds - *Routine Cardiovascular Exam Present: RRR - *Routine Abdominal Exam Present: normoactive bowel sounds Internal Medicine - CN: Reslt - Labs CBC & Chem 7: 05/05/18 05:35 05/05/18 05:35 Labs: Short CBC 05/05/18 Range/Units 05:35 WBC 38.3 H* D (4.8-10.8) K/mm3 Hgb 12.7 L (14.1-18.0) g/dL Hct 39.3 L (42.0-52.0) % Plt Count 277 (142-424) K/mm3 BMP 05/05/18 05:35 Sodium 134 L Potassium 4.1 D Chloride 99 Carbon Dioxide 22 BUN 29 H D Creatinine 3.61 H D Glucose 156 H Calcium 7.4 L D Assessment and Plan (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 Current visit: Yes Status: Acute Category: Medical Code(s): Z79.899 - Other laborer marine terminal (current) drug therapy (2) Sepsis Current visit: Yes Status: Acute Category: Medical Code(s): A41.9 - Sepsis, unspecified organism (3) Lingular pneumonia Current visit: No Status: Acute Category: Medical Code(s): J18.9 - Pneumonia, unspecified organism (4) Chronic inflammatory demyelinating neuropathy Current visit: No Status: Chronic Category: Medical Code(s): G61.81 - Chronic inflammatory demyelinating polyneuritis (5) Diarrhea Current visit: Yes Status: Acute Category: Medical Code(s): R19.7 - Diarrhea, unspecified - Assessment and plan all Dx Assessment and Plan for all problems:: 1.) Possible early pancreatitis due to either obstruction or medication induced. Agree with transfer to [facility] for advanced multi-disciplinary care. Agree with u/s of gallbladder and MRCP at some point. Liver enzymes are normal at this time so cholangitis does not appear to be source of infection. <Collin Patel - Last Filed: 05/05/18 15:42> *History of present illness: Agree with transfer to [facility] with the availability of pulmonary, infectious disease specialist. The patient does have probable acute pancreatitis based upon imaging with elevated lipase. This could be related to gallstone pancreatitis or the azathioprine. I did recommend ultrasound of the abdomen as well as possible MRCP. This certainly may not take precedence over his other diagnostic evaluation and care and will certainly await recommendations from GI specialists at [facility]. Exam Vital signs and Labs for Last 24 Hours: Temp Pulse Resp BP Pulse Ox 18 F L 80 20 110/60 89 L 05/05/18 11:40 05/05/18 11:40 05/05/18 08:00 05/05/18 11:40 05/05/18 11:40 Laboratory Results - last 24 hr 05/04/18 06:34: Amylase 101, Lipase 1147 H 05/04/18 11:24: POC Glucose 120 H 05/04/18 16:15: Lactate 4.7 H 05/04/18 16:18: POC Glucose 170 H 05/04/18 21:06: POC Glucose 165 H 05/05/18 05:35: WBC 38.3 H* D, RBC 4.15 L, Hgb 12.7 L, Hct 39.3 L, MCV 94.5 H, MCH 30.6, MCHC 32.3, RDW 14.0, Plt Count 277, MPV 7.9, Neut % (Auto) 96.2 H, Lymph % (Auto) 1.0 L, Becker % (Auto) 2.4, Eos % (Auto) 0.2, Baso % (Auto) 0.1, Neut # (Auto) 36.9 H, Lymph # (Auto) 0.4 L, Becker # (Auto) 0.9, Eos # (Auto) 0.1, Baso # (Auto) 0.1, Total Counted 100, Neutrophils % (Manual) 78 H, Band Neutrophils % 16.0 H, Lymphocytes % (Manual) 1 L, Monocytes % (Manual) 1 L, Eosinophils % (Manual) 1, Metamyelocytes % 3 H, Myelocytes % Play Reader, Platelet Estimate Normal 05/05/18 05:35: Sodium 134 L, Potassium 4.1 D, Chloride 99, Carbon Dioxide 22, Anion Gap 17.1 H, BUN 29 H D, Creatinine 3.61 H D, Estimated Creat Clear 34, Estimated GFR 17 L*, Est GFR ( Amer) 21 L D, Glucose 156 H, Calcium 7.4 L D 05/05/18 08:00: Stl Aeromonas (PCR) Not detected, Stl C. cayetanensis PCR Not detected, Stool Rotavirus (PCR) Not detected, Stl Adenov F 40/41 PCR Not detected, Stool Astrovirus (PCR) Not detected, Stool Campylobacter PCR Not detected, Stl C.difficile Tox PCR Not detected, Stool Cryptosporidium PCR Not detected, Stl E.coli Shiga Tox PCR Not detected, Stool E coli O157 PCR Not detected, Stl Enterotoxigenic E PCR Not detected, Stool EPEC (PCR) Not detected, Stool EAEC (PCR) Not detected, Stl E. histolytica PCR Not detected, Stool Giardia Lamblia PCR Not detected, Stool Salmonella PCR Not detected, Stool Sapovirus (PCR) Not detected, Stl P. shigelloides PCR Not detected, Stl Shigella/EIEC PCR Not detected, St Y.enterocolitica PCR Not detected, Stool Vibrio (PCR) Not detected, Stl Vibrio cholerae PCR Not detected, Stl Norovirus GI/GII PCR Not detected I & O for Last 24 hours: Intake & Output 05/02/18 05/03/18 05/04/18 05/05/18 23:59 23:59 23:59 23:59 Intake Total 4090 / 4090 800 / 800 Balance 4090 / 4090 800 / 800 Weight 118.501 kg 118.388 kg Microbiology Reports for the Last 24 Hours: Microbiology 05/04/18 06:30 Sputum - Expectorated Sputum Gram Stain - Final Internal Medicine - CN: Reslt - Labs CBC & Chem 7: 05/05/18 05:35 05/05/18 05:35 Labs: Short CBC 05/05/18 Range/Units 05:35 WBC 38.3 H* D (4.8-10.8) K/mm3 Hgb 12.7 L (14.1-18.0) g/dL Hct 39.3 L (42.0-52.0) % Plt Count 277 (142-424) K/mm3 BMP 05/05/18 05:35 Sodium 134 L Potassium 4.1 D Chloride 99 Carbon Dioxide 22 BUN 29 H D Creatinine 3.61 H D Glucose 156 H Calcium 7.4 L D Assessment and Plan (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 Current visit: Yes Status: Acute Category: Medical Code(s): Z79.899 - Other intermediate (current) drug therapy (2) Sepsis Current visit: Yes Status: Acute Category: Medical Code(s): A41.9 - Sepsis, unspecified organism (3) Lingular pneumonia Current visit: No Status: Acute Category: Medical Code(s): J18.9 - P neumonia, unspecified organism (4) Chronic inflammatory demyelinating neuropathy Current visit: No Status: Chronic Category: Medical Code(s): G61.81 - Chronic inflammatory demyelinating polyneuritis (5) Diarrhea Current visit: Yes Status: Acute Category: Medical Code(s): R19.7 - Diarrhea, unspecified
[2018-05-05 17:45] LABS: Calcium 7.3 mg/dL (8.5-10.1)
[2018-05-06 08:39] LABS: Basophils % 0.1 % (0.1-2.0); Eosinophils # 0.5 K/mm3 (0.0-0.4); Eosinophils % 2.1 % (0.1-12.0); Hematocrit 34.1 % (42.0-52.0); Hemoglobin 11.1 g/dL (14.1-18.0); Lymphocytes # 0.6 K/mm3 (0.7-4.5); Lymphocytes % 2.6 % (10-50); Mean Corpuscular HGB Conc 32.5 g/dL (31.8-35.4); Mean Corpuscular Hemoglobin 30.5 pg (27.0-31.2); Mean Platelet Volume 7.1 fl (7.4-10.4); Monocytes # 0.4 K/mm3 (0.1-1.0); Monocytes % 1.8 % (1.7-9.3); Neutrophils # 20.9 K/mm3 (1.8-7.8); Neutrophils % 93.4 % (37.0-80.0); Platelet Count 289 K/mm3 (142-424); Red Blood Count 3.62 M/mm3 (4.60-6.20); Red Cell Distribution Width 14.3 % (11.5-17.5); White Blood Count 22.4 K/mm3 (4.8-10.8)
[2018-05-06 08:54] LABS: Albumin/Globulin Ratio 0.5 (1.1-1.8); Anion Gap 13.9 mEq/L (5-15); Bilirubin,Total 0.4 mg/dL (0.2-1.0); Calcium 7.2 mg/dL (8.5-10.1); Potassium 3.9 mmoL/L (3.5-5.1)
[2018-05-06 09:03] LABS: Lymphocytes % 5 % (10-50); Monocytes % 1 % (2-9); Neutrophils % 94 % (42-76); Total Cells Counted 100
[2018-05-06 09:05] LABS: RBC Morphology Normal
--- NOTE | 2018-05-06 13:12 | Progress Note ---
Internal Medicine - PN: Subj *Date: 05/06/18 *Time: 08:45 Interval history: feels a little better this morning, "definitely no worse" per report. Exam Vital signs and Labs for Last 24 Hours: Temp Pulse Resp BP Pulse Ox 99.1 F 76 21 134/86 97 05/06/18 11:41 05/06/18 11:41 05/06/18 11:41 05/06/18 11:41 05/06/18 11:41 Laboratory Results - last 24 hr 05/05/18 06:43: POC Glucose 146 H 05/05/18 12:03: POC Glucose 168 H 05/05/18 16:36: POC Glucose 178 H 05/05/18 17:03: Sodium 132 L, Potassium 5.0 D, Chloride 100, Carbon Dioxide 16 L D, Anion Gap 21.0 H, BUN 34 H, Creatinine 3.78 H, Estimated Creat Clear 32, Estimated GFR 16 L*, Est GFR ( Amer) 19 L*, Glucose 179 H, Calcium 7.3 L 05/05/18 20:42: POC Glucose 177 H 05/06/18 05:48: POC Glucose 112 H 05/06/18 08:30: WBC 22.4 H* D, RBC 3.62 L, Hgb 11.1 L, Hct 34.1 L, MCV 94.0, MCH 30.5, MCHC 32.5, RDW 14.3, Plt Count 289, MPV 7.1 L, Neut % (Auto) 93.4 H, Lymph % (Auto) 2.6 L, [place] % (Auto) 1.8, Eos % (Auto) 2.1, Baso % (Auto) 0.1, Neut # (Auto) 20.9 H, Lymph # (Auto) 0.6 L, [place] # (Auto) 0.4, Eos # (Auto) 0.5 H, Baso # (Auto) 0.0, Total Counted 100, Neutrophils % (Manual) 94 H, Lymphocytes % (Manual) 5 L, Monocytes % (Manual) 1 L, Platelet Estimate Normal, RBC Morphology Normal 05/06/18 08:30: Sodium 134 L, Potassium 3.9 D, Chloride 104, Carbon Dioxide 20 L D, Anion Gap 13.9, BUN 35 H, Creatinine 3.47 H, Estimated Creat Clear 37, Estimated GFR 18 L*, Est GFR ( Amer) 22 L, Glucose 183 H, Calcium 7.2 L, Magnesium 1.4, Total Bilirubin 0.4, AST 20 D, ALT 30, Alkaline Phosphatase 50, Total Protein 6.0 L, Albumin 2.0 L, Globulin 4.0 H, Albumin/Globulin Ratio 0.5 L 05/06/18 11:46: POC Glucose 235 H I & O for Last 24 hours: Intake & Output 05/03/18 05/04/18 05/05/18 05/06/18 23:59 23:59 23:59 23:59 Intake Total 4090 / 4090 3451 / 3451 1663 / 1663 Balance 4090 / 4090 3451 / 3451 1663 / 1663 Weight 118.501 kg 118.388 kg 125.22 kg Microbiology Reports for the Last 24 Hours: Microbiology 05/04/18 06:30 Sputum - Expectorated Sputum Gram Stain - Final 05/04/18 06:30 Sputum - Expectorated Sputum Sputum Culture - Preliminary 05/04/18 06:34 Blood Blood Culture - Preliminary NO GROWTH AFTER 48 HOURS 05/04/18 06:34 Blood Blood Culture - Preliminary NO GROWTH AFTER 48 HOURS Assessment and Plan (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 Current visit: Yes Status: Acute Category: Medical Code(s): Z79.899 - Other snf (current) drug therapy (2) Sepsis Current visit: Yes Status: Acute Category: Medical Code(s): A41.9 - Sepsis, unspecified organism (3) Lingular pneumonia Current visit: No Status: Acute Category: Medical Code(s): J18.9 - Pneumonia, unspecified organism (4) Chronic inflammatory demyelinating neuropathy Current visit: No Status: Chronic Category: Medical Code(s): G61.81 - Chronic inflammatory demyelinating polyneuritis (5) Diarrhea Current visit: Yes Status: Acute Category: Medical Code(s): R19.7 - D iarrhea, unspecified
== END 2018-05-06 16:18 | disposition short-term general hospital (02) | DRG 871 ==
LOC: 2ND 05:51 → ER 05:51 → OBSVTOIN 08:35 → 2ND 08:59
PROVIDERS: ADMIT Internal Medicine Adolescent Medicine; ATTEND Internal Medicine Adolescent Medicine
CPT/HCPCS: 36415; 70551; 71010; 71045; 71250; 74176; 80048; 80053; 82150; 82962; 83605; 83690; 83735; 85007; 85025; 87040; 87070; 87205; 87275; 87276; 87507; 93306; 94760; 94761; 96365; 96367; 96375; 99285; J0692; J2405; J2543; J3370

== ENCOUNTER 2018-05-26 09:59 | Outpatient (RCR) | payer MEDICARE, SELFPAY | END 2018-07-10 15:08 | disposition home or self-care (01) | LOC: PT.CARL 09:59 | PROVIDERS: Visit Provider Psychiatry & Neurology Sleep Medicine | DX: G61.81 Chronic inflammatory demyelinating polyneuritis (principal) | CPT/HCPCS: 97163 ==

== ENCOUNTER → 2018-05-27 12:56 | Outpatient (POV) | payer MEDICARE, SELFPAY | PROVIDERS: Visit Provider Dermatology | DX: Z00.00 Encounter for general adult medical examination without abnormal findings (principal) ==

== ENCOUNTER → 2018-10-07 07:45 | Outpatient (CLI) | payer MEDICARE, SELFPAY ==
--- NOTE | 2018-10-07 08:03 | CT_ITS ---
CT abdomen pelvis wo con CLINICAL INDICATION: ITS.REASON: ABD PAIN ORDERING PHYSICIAN: Crystal Cleaning PATIENT AGE: 68 years COMPARISON: 05/04/2018. TECHNIQUE: Axial images obtained with sagittal and coronal reformats. All CT scans at the facility use one or more dose reduction, viz: automated exposure control, ma/kV adjustment per patient size (including targeted exams where dose is matched to indication, i.e. head), or iterative reconstruction technique. PROCEDURE: Oral Contrast: None IV Contrast: None . FINDINGS: Lower thorax: No acute finding ABDOMEN: Liver: Hypodensity of the liver compared to the spleen remains stable without focal abnormality. Gallbladder: Nondistended. No radio opaque stones. Pancreas: No masses or peripancreatic fluid collections. Spleen: Unremarkable. Adrenals: Unremarkable Kidneys/ureters: No masses. No renal calculi. No hydronephrosis. No perinephric fluid collections. No ureteral dilatation or obvious ureteral calculi. Stomach bowel: Nondistended. No obvious mass or thickening. There is evidence of numerous colonic diverticula especially in the proximal sigmoid colon without pericolonic inflammation or fluid collections. Appendix: No evidence of appendicitis. PELVIS: Reproductive: Unremarkable Bladder: Nondistended. No obvious stones or masses. ABDOMEN & PELVIS: Peritoneum: Again seen are strands of increased density with a few small lymph nodes in the mid abdominal mesentery however this is relatively improved compared to the prior study. Lymph nodes: No enlarged lymph nodes apparent. Vasculature: No evidence of abdominal aortic aneurysm. No retroperitoneal hemorrhage evident. Bones: No acute fracture IMPRESSION: Hepatic steatosis is stable. Decreased changes of mesenteric panniculitis . Uncomplicated colonic diverticulosis.
== END ==
PROVIDERS: PCP Nurse Practitioner Family; Visit Provider Nurse Practitioner Family
DX: R10.84 Generalized abdominal pain (principal)
CPT/HCPCS: 74176

== ENCOUNTER → 2018-12-29 11:06 | Outpatient (POV) | payer MEDICARE, SELFPAY ==
[2018-12-29 12:35] LABS: Basophils # 0.1 K/mm3 (0-0.2); Basophils % 0.5 % (0.1-2.0); Eosinophils # 0.1 K/mm3 (0.0-0.4); Eosinophils % 0.8 % (0.1-12.0); Hematocrit 42.1 % (42.0-52.0); Hemoglobin 12.9 g/dL (14.1-18.0); Lymphocytes % 20.1 % (10-50); Mean Corpuscular HGB Conc 30.7 g/dL (31.8-35.4); Mean Corpuscular Hemoglobin 30.3 pg (27.0-31.2); Mean Corpuscular Volume 98.5 fl (80-94); Mean Platelet Volume 7.8 fl (7.4-10.4); Monocytes # 0.6 K/mm3 (0.1-1.0); Monocytes % 3.8 % (1.7-9.3); Neutrophils # 11.2 K/mm3 (1.8-7.8); Neutrophils % 74.8 % (37.0-80.0); Platelet Count 331 K/mm3 (142-424); Red Blood Count 4.27 M/mm3 (4.60-6.20); Red Cell Distribution Width 13.7 % (11.5-17.5); White Blood Count 14.9 K/mm3 (4.8-10.8)
[2018-12-29 14:55] LABS: Alanine Aminotransferase 36 U/L (12-78); Albumin Level 3.5 gm/dL (3.4-5.0); Albumin/Globulin Ratio 0.7 (1.1-1.8); Alkaline Phosphatase 35 U/L (46-116); Amylase 65 U/L (25-115); Anion Gap 9.8 mEq/L (5-15); Aspartate Amino Transferase 19 U/L (15-37); Bilirubin,Total 0.3 mg/dL (0.2-1.0); Blood Urea Nitrogen 15 mg/dL (7-18); Calcium 9.2 mg/dL (8.5-10.1); Carbon Dioxide 37 mmol/L (21.0-32.0); Chloride 97 mmol/L (98-107); Creatinine,Serum 1.48 mg/dL (0.70-1.30); Estimated Glomerular Filt Rate 48 ml/min (>60); GFR (African American) 58 ML/MIN (>60); Glucose 166 mg/dL (74-106); Lipase 476 u/L (73-393); Potassium 3.8 mmoL/L (3.5-5.1); Sodium 140 mmol/L (136-145); Total Protein,Serum 8.5 gm/dL (6.4-8.2)
== END ==
PROVIDERS: PCP Internal Medicine Adolescent Medicine; Visit Provider Nurse Practitioner Family
DX: K58.0 Irritable bowel syndrome with diarrhea (principal)
CPT/HCPCS: 36415; 80053; 82150; 83690; 85025

== ENCOUNTER → 2019-01-10 21:00 | Outpatient (CLI) | payer MEDICARE, SELFPAY ==
[2019-01-13 14:10] LABS: Adenovirus F 40/41, stool Not Detected (NotDetected); Astrovirus Not Detected (NotDetected); Campylobacter Not Detected (NotDetected); Clostridium Difficile A/B, PCR Not Detected (NotDetected); Cryptosporidium Not Detected (NotDetected); Cyclospora Cayetanesis Not Detected (NotDetected); Entamoeba histolytica Not Detected (NotDetected); Enteropathogenic E coli Not Detected (NotDetected); Enterotoxigenic E coli Not Detected (NotDetected); Giardia lamblia Not Detected (NotDetected); Norovirus Not Detected (NotDetected); Plesimonas Shigalloides, PCR Not Detected (NotDetected); Rotavirus A Not Detected (NotDetected); Salmonella, PCR Not Detected (NotDetected); Sapovirus Not Detected (NotDetected); Shiga-like toxin E coli Not Detected (NotDetected); Shigella Enterovasive E coli Not Detected (NotDetected); Vibrio Cholerae Not Detected (NotDetected); Vibrio, PCR Not Detected (NotDetected); Yersinia Entercolitica, PCR Not Detected (NotDetected)
[2019-01-13 14:33] LABS: Occult Blood,Stool Positive (Negative)
[2019-01-13 18:31] LABS: Enteroaggregative E coli Detected (NotDetected)
[2019-01-16 08:17] LABS: Fats, Neutral Normal (.); Fats, Total Normal (.)
[2019-01-20 09:25] LABS: Lactoferrin, Fecal, Quant. 9.76 ug/mL(g) (0.00-7.24)
[2019-01-20 09:28] LABS: Pancreatic Elastase, Fecal >500 (>200)
== END ==
PROVIDERS: Visit Provider Internal Medicine Gastroenterology
DX: K52.9 Noninfective gastroenteritis and colitis, unspecified (principal); K85.90 Acute pancreatitis without necrosis or infection, unspecified
CPT/HCPCS: 82272; 82656; 82705; 83630; 87205; 87506; G0328

== ENCOUNTER → 2019-03-02 11:46 | Outpatient (POV) | payer MEDICARE, SELFPAY | PROVIDERS: Visit Provider Nurse Practitioner Family | DX: Z00.00 Encounter for general adult medical examination without abnormal findings (principal) ==

== ENCOUNTER → 2019-03-04 12:18 | Outpatient (CLI) | payer MEDICARE, SELFPAY ==
[2019-03-04 12:27] LABS: Adenovirus F 40/41, stool Not Detected (NotDetected); Astrovirus Not Detected (NotDetected); Campylobacter Not Detected (NotDetected); Clostridium Difficile A/B, PCR Not Detected (NotDetected); Cryptosporidium Not Detected (NotDetected); Cyclospora Cayetanesis Not Detected (NotDetected); Entamoeba histolytica Not Detected (NotDetected); Enteroaggregative E coli Not Detected (NotDetected); Enteropathogenic E coli Not Detected (NotDetected); Enterotoxigenic E coli Not Detected (NotDetected); Giardia lamblia Not Detected (NotDetected); Norovirus Not Detected (NotDetected); Plesimonas Shigalloides, PCR Not Detected (NotDetected); Rotavirus A Not Detected (NotDetected); Salmonella, PCR Not Detected (NotDetected); Sapovirus Not Detected (NotDetected); Shiga-like toxin E coli Not Detected (NotDetected); Shigella Enterovasive E coli Not Detected (NotDetected); Vibrio Cholerae Not Detected (NotDetected); Vibrio, PCR Not Detected (NotDetected); Yersinia Entercolitica, PCR Not Detected (NotDetected)
== END ==
PROVIDERS: Visit Provider Nurse Practitioner Family
DX: K52.9 Noninfective gastroenteritis and colitis, unspecified (principal); B96.20 Unspecified Escherichia coli [E. coli] as the cause of diseases classified elsewhere
CPT/HCPCS: 87507

== ENCOUNTER → 2019-05-11 10:02 | Outpatient (POV) | payer MEDICARE, SELFPAY | PROVIDERS: PCP Nurse Practitioner Family; Visit Provider Nurse Practitioner Family | DX: Z00.00 Encounter for general adult medical examination without abnormal findings (principal) ==

== ENCOUNTER 2020-03-09 11:00 | Outpatient (RCR) | payer MEDICARE, MEDICAID, SELFPAY | END 2020-03-09 16:41 | disposition home or self-care (01) | LOC: PT.CARL 11:00 | PROVIDERS: PCP Nurse Practitioner Family; Visit Provider Psychiatry & Neurology Clinical Neurophysiology | DX: G61.81 Chronic inflammatory demyelinating polyneuritis (principal) | CPT/HCPCS: 97110; 97112; 97163; 97530 ==

== ENCOUNTER → 2020-06-27 07:58 | Outpatient (CLI) | payer MEDICARE, MEDICAID, SELFPAY ==
[2020-07-01 06:16] LABS: Zinc 65 ug/dL (44-115)
== END ==
PROVIDERS: Visit Provider Psychiatry & Neurology Clinical Neurophysiology
DX: G62.9 Polyneuropathy, unspecified (principal)
CPT/HCPCS: 36415; 82525; 84630